=== PATIENT | female | born 1980 | race Caucasian/White ===

== ENCOUNTER → 2019-12-26 14:33 | Outpatient (BNVA) | payer MEDICAID, SELFPAY | PROVIDERS: PCP Nurse Practitioner Family; Referring Provider Nurse Practitioner Family; Visit Provider Otolaryngology | DX: H91.93 Unspecified hearing loss, bilateral (principal); J34.2 Deviated nasal septum; F17.210 Nicotine dependence, cigarettes, uncomplicated | CPT/HCPCS: 99203; 99214 ==

== ENCOUNTER → 2020-01-30 10:50 | Outpatient (BNVA) | payer MEDICAID, SELFPAY | PROVIDERS: PCP Nurse Practitioner Family; Visit Provider Family Medicine | DX: Z00.00 Encounter for general adult medical examination without abnormal findings (principal); F31.81 Bipolar II disorder | CPT/HCPCS: 80053; 80061; 84443; 85025 ==

== ENCOUNTER → 2020-02-06 11:12 | Outpatient (BNVA) | payer MEDICAID, SELFPAY | PROVIDERS: PCP Nurse Practitioner Family; Visit Provider Counselor Professional | DX: F41.9 Anxiety disorder, unspecified (principal); F31.9 Bipolar disorder, unspecified | CPT/HCPCS: 90834 ==

== ENCOUNTER → 2020-02-20 11:09 | Outpatient (BNVA) | payer MEDICAID, SELFPAY | PROVIDERS: PCP Nurse Practitioner Family; Visit Provider Counselor Professional | DX: F31.9 Bipolar disorder, unspecified (principal); F41.9 Anxiety disorder, unspecified | CPT/HCPCS: 90832 ==

== ENCOUNTER → 2020-02-28 07:52 | Outpatient (BNVA) | payer MEDICAID, SELFPAY | PROVIDERS: PCP Nurse Practitioner Family; Visit Provider Psychiatry & Neurology Psychiatry | DX: F31.81 Bipolar II disorder (principal); F41.9 Anxiety disorder, unspecified; F43.12 Post-traumatic stress disorder, chronic | CPT/HCPCS: 99205 ==

== ENCOUNTER → 2020-04-15 07:55 | Outpatient (BNVA) | payer MEDICAID, SELFPAY | PROVIDERS: PCP Nurse Practitioner Family; Visit Provider Psychiatry & Neurology Psychiatry | DX: G47.00 Insomnia, unspecified (principal); F41.1 Generalized anxiety disorder; F40.01 Agoraphobia with panic disorder; F31.81 Bipolar II disorder; F31.9 Bipolar disorder, unspecified; J34.2 Deviated nasal septum; H91.93 Unspecified hearing loss, bilateral | CPT/HCPCS: 99215 ==

== ENCOUNTER → 2020-04-16 09:28 | Outpatient (BNVA) | payer MEDICAID, SELFPAY | PROVIDERS: PCP Nurse Practitioner Family; Visit Provider Psychiatry & Neurology Psychiatry | DX: F51.01 Primary insomnia (principal); F40.01 Agoraphobia with panic disorder; F41.1 Generalized anxiety disorder; F31.81 Bipolar II disorder; J34.2 Deviated nasal septum; F31.9 Bipolar disorder, unspecified; F41.9 Anxiety disorder, unspecified; G47.00 Insomnia, unspecified; H91.93 Unspecified hearing loss, bilateral | CPT/HCPCS: 81025; 82607; 82652; 82746; 84630 ==

== ENCOUNTER → 2020-05-08 16:00 | Outpatient (BNVA) | payer MEDICAID, SELFPAY | PROVIDERS: PCP Nurse Practitioner Family; Visit Provider Family Medicine | DX: E78.5 Hyperlipidemia, unspecified (principal) | CPT/HCPCS: 80053; 80061; 85025 ==

== ENCOUNTER → 2020-05-27 07:45 | Outpatient (BNVA) | payer MEDICAID, SELFPAY | PROVIDERS: PCP Nurse Practitioner Family; Visit Provider Nurse Practitioner Psychiatric/Mental Health | DX: F40.01 Agoraphobia with panic disorder (principal); F31.81 Bipolar II disorder; F43.10 Post-traumatic stress disorder, unspecified | CPT/HCPCS: 99213 ==

== ENCOUNTER → 2020-05-28 08:40 | Outpatient (BNVA) | payer MEDICAID, SELFPAY | PROVIDERS: PCP Nurse Practitioner Family; Visit Provider Counselor Professional | DX: F40.01 Agoraphobia with panic disorder (principal); F31.89 Other bipolar disorder; F43.12 Post-traumatic stress disorder, chronic | CPT/HCPCS: 90832 ==

== ENCOUNTER → 2020-07-02 09:39 | Outpatient (BNVA) | payer MEDICAID, SELFPAY | PROVIDERS: PCP Nurse Practitioner Family; Visit Provider Nurse Practitioner Psychiatric/Mental Health | DX: F40.01 Agoraphobia with panic disorder (principal); F43.10 Post-traumatic stress disorder, unspecified | CPT/HCPCS: 99212 ==

== ENCOUNTER → 2020-08-28 16:10 | Outpatient (BNVA) | payer MEDICAID, SELFPAY | PROVIDERS: PCP Nurse Practitioner Family; Visit Provider Family Medicine | DX: E78.5 Hyperlipidemia, unspecified (principal); F51.01 Primary insomnia; G43.829 Menstrual migraine, not intractable, without status migrainosus; Z23 Encounter for immunization | CPT/HCPCS: 80053; 80061; 85025 ==

== ENCOUNTER → 2020-09-24 08:21 | Outpatient (BNVA) | payer MEDICAID, SELFPAY | PROVIDERS: PCP Nurse Practitioner Family; Visit Provider Nurse Practitioner Psychiatric/Mental Health | DX: F31.81 Bipolar II disorder (principal); F40.01 Agoraphobia with panic disorder; F43.10 Post-traumatic stress disorder, unspecified | CPT/HCPCS: 99212 ==

== ENCOUNTER → 2020-10-21 11:46 | Outpatient (BNVA) | payer MEDICAID, SELFPAY | PROVIDERS: PCP Nurse Practitioner Family; Visit Provider Family Medicine | DX: R53.82 Chronic fatigue, unspecified (principal); M25.541 Pain in joints of right hand; M25.542 Pain in joints of left hand | CPT/HCPCS: 80053; 82306; 82607; 83540; 84443; 84550; 85025; 85651; 86431 ==

== ENCOUNTER → 2020-11-12 08:19 | Outpatient (BNVA) | payer MEDICAID, SELFPAY | PROVIDERS: PCP Nurse Practitioner Family; Visit Provider Nurse Practitioner Psychiatric/Mental Health | DX: Z51.81 Encounter for therapeutic drug level monitoring (principal); F40.01 Agoraphobia with panic disorder; F43.10 Post-traumatic stress disorder, unspecified | CPT/HCPCS: 99212 ==

== ENCOUNTER → 2020-11-13 15:49 | Outpatient (BNVA) | payer MEDICAID, SELFPAY | PROVIDERS: PCP Nurse Practitioner Family; Visit Provider Nurse Practitioner Psychiatric/Mental Health | DX: Z51.81 Encounter for therapeutic drug level monitoring (principal) | CPT/HCPCS: 80307 ==

== ENCOUNTER → 2020-12-12 07:51 | Outpatient (BNVA) | payer MEDICAID, SELFPAY | PROVIDERS: PCP Nurse Practitioner Family; Visit Provider Nurse Practitioner Psychiatric/Mental Health | DX: F40.01 Agoraphobia with panic disorder (principal); F43.10 Post-traumatic stress disorder, unspecified | CPT/HCPCS: 99213 ==

== ENCOUNTER → 2021-02-06 08:39 | Outpatient (BNVA) | payer MEDICAID, SELFPAY | PROVIDERS: PCP Nurse Practitioner Family; Visit Provider Nurse Practitioner Psychiatric/Mental Health | DX: F40.01 Agoraphobia with panic disorder (principal); F43.10 Post-traumatic stress disorder, unspecified | CPT/HCPCS: 99214 ==

== ENCOUNTER → 2021-02-25 12:40 | Outpatient (BNVA) | payer MEDICAID, SELFPAY | PROVIDERS: PCP Nurse Practitioner Family; Visit Provider Social Worker Clinical | DX: F41.1 Generalized anxiety disorder (principal); F41.0 Panic disorder [episodic paroxysmal anxiety]; F43.10 Post-traumatic stress disorder, unspecified | CPT/HCPCS: 90834 ==

== ENCOUNTER → 2021-03-11 16:11 | Outpatient (BNVA) | payer MEDICAID, SELFPAY | PROVIDERS: PCP Nurse Practitioner Family; Visit Provider Family Medicine | DX: N92.0 Excessive and frequent menstruation with regular cycle (principal); E78.2 Mixed hyperlipidemia; F51.01 Primary insomnia; M25.541 Pain in joints of right hand; M25.542 Pain in joints of left hand | CPT/HCPCS: 80053; 80061; 84443; 85025 ==

== ENCOUNTER → 2021-03-14 11:39 | Outpatient (BNVA) | payer MEDICAID, SELFPAY | PROVIDERS: PCP Nurse Practitioner Family; Visit Provider Nurse Practitioner Women's Health | DX: N93.9 Abnormal uterine and vaginal bleeding, unspecified (principal); Z12.4 Encounter for screening for malignant neoplasm of cervix; N89.8 Other specified noninflammatory disorders of vagina; B37.9 Candidiasis, unspecified; N94.5 Secondary dysmenorrhea; G43.829 Menstrual migraine, not intractable, without status migrainosus | CPT/HCPCS: 84702; 88175 ==

== ENCOUNTER → 2021-03-17 08:23 | Outpatient (BNVA) | payer MEDICAID, SELFPAY | PROVIDERS: PCP Nurse Practitioner Family; Visit Provider Nurse Practitioner Psychiatric/Mental Health | DX: F41.1 Generalized anxiety disorder (principal); F51.01 Primary insomnia; F41.0 Panic disorder [episodic paroxysmal anxiety]; F43.10 Post-traumatic stress disorder, unspecified | CPT/HCPCS: 99214 ==

== ENCOUNTER → 2021-03-18 12:52 | Outpatient (BNVA) | payer MEDICAID, SELFPAY | PROVIDERS: PCP Nurse Practitioner Family; Visit Provider Social Worker Clinical | DX: F41.1 Generalized anxiety disorder (principal); F41.0 Panic disorder [episodic paroxysmal anxiety]; F43.10 Post-traumatic stress disorder, unspecified | CPT/HCPCS: 90834 ==

== ENCOUNTER → 2021-03-21 09:28 | Outpatient (BNVA) | payer MEDICAID, SELFPAY | PROVIDERS: PCP Nurse Practitioner Family; Visit Provider Nurse Practitioner Women's Health | DX: N93.9 Abnormal uterine and vaginal bleeding, unspecified (principal); N83.292 Other ovarian cyst, left side; N89.8 Other specified noninflammatory disorders of vagina | CPT/HCPCS: 76830 ==

== ENCOUNTER → 2021-04-03 10:30 | Outpatient (BNVA) | payer MEDICAID, SELFPAY | PROVIDERS: PCP Nurse Practitioner Family; Visit Provider Nurse Practitioner Women's Health | DX: N93.9 Abnormal uterine and vaginal bleeding, unspecified (principal) | CPT/HCPCS: 84702 ==

== ENCOUNTER → 2021-04-08 10:18 | Outpatient (BNVA) | payer MEDICAID, SELFPAY | PROVIDERS: PCP Nurse Practitioner Family; Visit Provider Nurse Practitioner Women's Health | DX: N93.9 Abnormal uterine and vaginal bleeding, unspecified (principal); N94.5 Secondary dysmenorrhea; G43.829 Menstrual migraine, not intractable, without status migrainosus | CPT/HCPCS: 81025; 88305 ==

== ENCOUNTER → 2021-04-09 12:58 | Outpatient (BNVA) | payer MEDICAID, SELFPAY | PROVIDERS: PCP Nurse Practitioner Family; Visit Provider Social Worker Clinical | DX: F43.12 Post-traumatic stress disorder, chronic (principal); F41.1 Generalized anxiety disorder; F41.0 Panic disorder [episodic paroxysmal anxiety] | CPT/HCPCS: 90834 ==

== ENCOUNTER 2021-04-29 08:12 | Outpatient (CLI) | payer MEDICAID, SELFPAY ==
--- NOTE | 2021-04-29 08:30 | MM_ITS ---
WS: [id number] BILATERAL DIGITAL SCREENING MAMMOGRAM WITH CAD CLINICAL INFORMATION: Z12.39 - Encounter for other screening for malignant neop... HISTORY: Screening mammogram. No current complaints. COMPARISON: None. TECHNIQUE: Bilateral CC and MLO. FINDINGS: The breast are composed of extremely dense tissue, which can limit the detection of small underlying mass lesions. Clustered regional calcifications in the upper outer left breast. Recommend spot magnif ication views for further evaluation. Right breast is unremarkable. IMPRESSION: MM/[place] [id number] BI-RADS: 0-Incomplete: Need additional imaging evaluation FOLLOW UP: Need Additional Imaging RECOMMEND DIAGNOSTIC MAMMOGRAPHY SPOT MAGNIFICATION VIEWS LEFT BREAST WITH ATTE NTION TO THE REGION OF CALCIFICATIONS.
== END 2021-04-29 08:13 | disposition home or self-care (01) ==
LOC: RADSHAW 08:13
PROVIDERS: PCP Family Medicine; Visit Provider Nurse Practitioner Women's Health
DX: Z12.31 Encounter for screening mammogram for malignant neoplasm of breast (principal)
CPT/HCPCS: 77067

== ENCOUNTER → 2021-04-30 12:59 | Outpatient (BNVA) | payer MEDICAID, SELFPAY | PROVIDERS: PCP Family Medicine; Visit Provider Social Worker Clinical | DX: F41.1 Generalized anxiety disorder (principal); F41.0 Panic disorder [episodic paroxysmal anxiety] | CPT/HCPCS: 90834 ==

== ENCOUNTER 2021-05-02 13:17 | Outpatient (CLI) | payer MEDICAID, SELFPAY ==
--- NOTE | 2021-05-02 13:30 | MM_ITS ---
WS: [id number] LEFT DIGITAL MAMMOGRAPHY WITH CAD CLINICAL INFORMATION: R92.1 - Mammographic calcification found on diagnostic im.. COMPARISON: April 29, 2021 TECHNIQUE: 3 views of the left breast were obtained. FINDINGS: The left breast is composed of heterogeneous fibroglandular density tissue, which can limit the detec tion of small underlying mass lesions. Stable clustered regional calcifications in the upper outer le ft breast. Amorphus clustered and punctate calcifications upper outer left breast. Essentially all of the calcifications demonstrate layering on the MLO view consistent with milk of calcium. Additional benign-appearing lucent centered calcifications. These are probably benign and recommend 6 month foll ow-up diagnostic mammography left breast with spot magnification views. ULTRASOUND BREAST LEFT TECHNIQUE: Ultrasound left breast focused area of concern. CLINICAL INFORMATION: R92.1 - Mammographic calcification found on diagnostic im... FINDINGS: Ultrasound left breast upper-outer quadrant. Dense parenchymal tissue. Two discrete hypoechoic lesion s with internal echogenicity may present complex cysts but are indeterminate. Recommend ultrasound-gu ided biopsy for further evaluation. First lesion measures 6.7 x 8.0 x 3.9 mm at the 1:00 position 2 to 3 cm from the nipple. Second lesio n at the 1:00 position 5 cm from the nipple measuring 7.4 x 3.7 x 7.5 mm. MM/[place] [id number] IMPRESSION: BI-RADS: 4-Suspicious Finding-Biopsy Should Be Considered FOLLOW UP: See Report RECOMMEND ULTRASOUND-GUIDED BIOPSY OF THE LEFT BREAST LESIONS. IN ADDITION, RECOMMEND 6 MONTH FOLLOW-UP DIAGNOSTIC MAMMOGRAPHY WITH SPOT MAGNI FICATION VIEWS OF THE CALCIFICATIONS UPPER OUTER LEFT BREAST
--- NOTE | 2021-05-02 14:05 | US_ITS ---
WS: [id number] LEFT DIGITAL MAMMOGRAPHY WITH CAD CLINICAL INFORMATION: R92.1 - Mammographic calcification found on diagnostic im.. COMPARISON: April 29, 2021 TECHNIQUE: 3 views of the left breast were obtained. FINDINGS: The left breast is composed of heterogeneous fibroglandular density tissue, which can limit the detec tion of small underlying mass lesions. Stable clustered regional calcifications in the upper outer le ft breast. Amorphus clustered and punctate calcifications upper outer left breast. Essentially all of the calcifications demonstrate layering on the MLO view consistent with milk of calcium. Additional benign-appearing lucent centered calcifications. These are probably benign and recommend 6 month foll ow-up diagnostic mammography left breast with spot magnification views. ULTRASOUND BREAST LEFT TECHNIQUE: Ultrasound left breast focused area of concern. CLINICAL INFORMATION: R92.1 - Mammographic calcification found on diagnostic im... FINDINGS: Ultrasound left breast upper-outer quadrant. Dense parenchymal tissue. Two discrete hypoechoic lesion s with internal echogenicity may present complex cysts but are indeterminate. Recommend ultrasound-gu ided biopsy for further evaluation. First lesion measures 6.7 x 8.0 x 3.9 mm at the 1:00 position 2 to 3 cm from the nipple. Second lesio n at the 1:00 position 5 cm from the nipple measuring 7.4 x 3.7 x 7.5 mm. US/US breast LT limited* [id number] IMPRESSION: BI-RADS: 4-Suspicious Finding-Biopsy Should Be Considered FOLLOW UP: See Report RECOMMEND ULTRASOUND-GUIDED BIOPSY OF THE LEFT BREAST LESIONS. IN ADDITION, RECOMMEND 6 MONTH FOLLOW-UP DIAGNOSTIC MAMMOGRAPHY WITH SPOT MAGNI FICATION VIEWS OF THE CALCIFICATIONS UPPER OUTER LEFT BREAST
== END 2021-05-02 13:18 | disposition home or self-care (01) ==
LOC: RADSHAW 13:19
PROVIDERS: PCP Family Medicine; Visit Provider Nurse Practitioner Women's Health
DX: R92.1 Mammographic calcification found on diagnostic imaging of breast (principal); N64.89 Other specified disorders of breast
CPT/HCPCS: 76642; 77065

== ENCOUNTER → 2021-05-09 13:31 | Outpatient (BNVA) | payer MEDICAID, SELFPAY | PROVIDERS: PCP Family Medicine; Visit Provider Obstetrics & Gynecology | DX: N88.0 Leukoplakia of cervix uteri (principal) | CPT/HCPCS: 81025; 88305 ==

== ENCOUNTER 2021-05-15 07:07 | Outpatient (CLI) | payer MEDICAID, SELFPAY ==
--- NOTE | 2021-05-15 07:10 | US_ITS ---
WS: [id number] ULTRASOUND LEFT BREAST HISTORY: R92.8 - Other abnormal and inconclusive findings on diagnostic mammo. COMPARISON: 05/02/2021 and 04/29/2021 TECHNIQUE: 2-D and Doppler. Patient presents for possible biopsy of the LEFT breast mass in the LEFT upper outer quadrant. On tod ay's examination there are normal fibroglandular structures. Ducts are dilated. All of these cystic a reas elongated and there are no luminal filling defect or increased vascularity. No mass is identifie d. US/US breast LT limited* [id number] IMPRESSION: BI-RADS: 3-Probably Benign FOLLOW-UP: 6 Month Follow-up There is no mass identified today for biopsy. This was explained to the patient . No biopsy will be performed. 6 month follow-up will be performed. This can be performed at the time of the additional magnification views of the LEFT breast which were also recommended.
== END 2021-05-15 07:08 | disposition home or self-care (01) ==
LOC: RAD 07:09
PROVIDERS: PCP Family Medicine; Visit Provider Nurse Practitioner Women's Health
DX: R92.8 Other abnormal and inconclusive findings on diagnostic imaging of breast (principal)
CPT/HCPCS: 76642

== ENCOUNTER → 2021-05-21 12:46 | Outpatient (BNVA) | payer MEDICAID, SELFPAY | PROVIDERS: PCP Family Medicine; Visit Provider Social Worker Clinical | DX: F41.1 Generalized anxiety disorder (principal); F43.12 Post-traumatic stress disorder, chronic; F41.0 Panic disorder [episodic paroxysmal anxiety] | CPT/HCPCS: 90834 ==

== ENCOUNTER → 2021-05-29 11:24 | Outpatient (BNVA) | payer MEDICAID, SELFPAY | PROVIDERS: PCP Family Medicine; Visit Provider Nurse Practitioner Women's Health | DX: Z30.9 Encounter for contraceptive management, unspecified (principal); N93.9 Abnormal uterine and vaginal bleeding, unspecified | CPT/HCPCS: 81025 ==

== ENCOUNTER → 2021-06-11 12:49 | Outpatient (BNVA) | payer MEDICAID, SELFPAY | PROVIDERS: PCP Family Medicine; Visit Provider Social Worker Clinical | DX: F43.12 Post-traumatic stress disorder, chronic (principal); F41.1 Generalized anxiety disorder; F41.0 Panic disorder [episodic paroxysmal anxiety] | CPT/HCPCS: 90834 ==

== ENCOUNTER → 2021-06-19 07:58 | Outpatient (BNVA) | payer MEDICAID, SELFPAY | PROVIDERS: PCP Family Medicine; Visit Provider Nurse Practitioner Psychiatric/Mental Health | DX: F41.1 Generalized anxiety disorder (principal); F41.0 Panic disorder [episodic paroxysmal anxiety]; F43.10 Post-traumatic stress disorder, unspecified; F51.01 Primary insomnia | CPT/HCPCS: 99214 ==

== ENCOUNTER → 2021-06-23 17:14 | Outpatient (BNVA) | payer MEDICAID, SELFPAY | PROVIDERS: PCP Family Medicine; Visit Provider Family Medicine | DX: E78.2 Mixed hyperlipidemia (principal); G43.829 Menstrual migraine, not intractable, without status migrainosus; F51.01 Primary insomnia; F17.211 Nicotine dependence, cigarettes, in remission; Z71.89 Other specified counseling | CPT/HCPCS: 80053; 80061; 84443; 85025 ==

== ENCOUNTER → 2021-07-22 07:49 | Outpatient (BNVA) | payer MEDICAID, SELFPAY | PROVIDERS: PCP Family Medicine; Visit Provider Nurse Practitioner Psychiatric/Mental Health | DX: F41.1 Generalized anxiety disorder (principal); F41.0 Panic disorder [episodic paroxysmal anxiety]; F43.10 Post-traumatic stress disorder, unspecified; F51.01 Primary insomnia | CPT/HCPCS: 99214 ==

== ENCOUNTER 2021-07-24 09:38 | Emergency (ER) | payer MEDICAID, SELFPAY ==
[2021-07-24 09:47] VITALS: BP 130/89; PULSE 84; RESP 18; TEMP 36.7; O2SAT 99; BMI 21.7
--- NOTE | 2021-07-24 09:57 | W.ED.ABDPA2 ---
HPI - Abdominal Pain General: Chief Complaint: Abdominal Pain Stated Complaint: stabbing pains to upper abd,sore to touch Time Seen by Provider: 07/24/21 09:43 Source: patient Mode of arrival: ambulatory Limitations: no limitations History of Present Illness: HPI narrative: Patient is a 40-year-old female who presents to ED today with a complaint of intermittent pain to her epigastric region over the past week. Patient tells me pain is always minimally present but will have brief exacerbations of severe discomfort. She has had some nausea without episodes of emesis. She had a little bit of diarrhea earlier in the week but states she had a normal bowel movement yesterday. Eating does not seem to affect her discomfort. No heavy alcohol use or anti-inflammatory use. No previous history of pancreatitis. No known history of gastric or duodenal ulcers or GI bleeds. No radiation of pain into her chest. MD elicited complaint: abdominal pain Onset (ago): day(s) Pain Consistency: intermittent Location: Epigastric Severity: moderate Pain scale (0-10): 5 Quality: sharp Radiation: none Migration to: no migration Exacerbating factors: nothing Relieving factors: nothing Associated Symptoms: Reports nausea; Denies chills, dysuria, fever(s), heartburn, hematochezia, hematemesis, melena, syncope and vomiting Review of Systems Const: Denies: fever(s), chills, body aches, fatigue or malaise ENMT: Denies: throat pain or odynophagia Card: Denies: chest pain, palpitations, edema, syncope or pre-syncope Resp: Denies: dyspnea, productive cough, non-productive cough or chest congestion GI: Reports: abdominal pain and nausea; Denies: vomiting, hematemesis, heartburn, pain on defecation, hematochezia or melena : Denies: flank pain, difficulty voiding, dysuria, urinary frequency or urinary urgency Musc: Denies: neck pain, back pain, extremity pain or joint pain Skin/Breast: Denies: rash Neuro: Denies: headache(s), numbness in extremities, weakness in extremities or sensory changes [facility] PFSH: Medical History Bipolar 1 disorder Deviated septum Generalized anxiety disorder with panic attacks Hx of supraventricular tachycardia Insomnia Menstrual migraine No pertinent past medical history neghx: htn,dm,thyroid,dvt/pe PCP: Dr. Marin Panic disorder with agoraphobia Surgical History No pertinent past surgical history Family History Family/Other Cancer MGM-- mets all over but uncertain etiology Bipolar 1 disorder Psychiatric illness Mother Heart disease Hypercholesteremia Stroke Other Hyperlipidemia Denies family history of Colon cancer Ovarian cancer Diabetes Breast cancer Hypertension Uterine cancer Thyroid disease Social History Smoking and tobacco status: former smoker Other details last substance use: 2 years ago Alcohol Methamphetamines. No cravings. Physical Exam Const: COMMON NORMALS: no acute distress, average body habitus, patient oriented x3, no limitations, healthy appearing, alert and well nourished GENERAL APPEARANCE: cooperative ORIENTATION/CONSCIOUSNESS: Yes awake, Yes oriented to person, Yes oriented to place and Yes oriented to time HENMT: COMMON NORMALS: normocephalic and atraumatic HEAD & SCALP: normocephalic and atraumatic Resp: COMMON NORMALS: normal respiratory effort and clear to auscultation bilaterally AUSCULTATION: clear to auscultation bilaterally Cardio: COMMON NORMALS: regular rate and regular rhythm RATE: regular rate RHYTHM: regular rhythm GI: COMMON NORMALS: Normal to inspection, nondistended, normoactive bowel sounds present, Soft to palpation, No hepatosplenomegaly present and no masses PALPATION: Yes Soft to palpation, Yes Tenderness to palpation present (GI) (epigastric) Details: LUQ and Yes No hepatosplenomegaly present : COMMON NORMALS: Yes no CVA tenderness BLADDER/KIDNEY EXAM: Yes no CVA tenderness Back/Pelvis: COMMON NORMALS: no CVA tenderness, thoracic and lumbar spine normal to inspection, no thoracic nor lumbar tenderness and thoraco-lumbar ROM normal Extremity: COMMON NORMALS: normal to inspection Neuro: COMMON NORMALS: patient oriented x3 SENSORIUM/ORIENTATION: Yes alert, Yes oriented to person, Yes oriented to place and Yes oriented to time Skin: COMMON NORMALS: no rashes or lesions noted GENERAL SKIN EXAM: no rashes or lesions noted TRAUMA: no lacerations or abrasions Course Vital Signs: Vital signs: Vital Signs Temperature 98.0 F 07/24/21 09:47 Pulse Rate 83 07/24/21 10:43 Respiratory Rate 18 07/24/21 10:43 Blood Pressure 108/73 07/24/21 10:43 Pulse Oximetry 95 07/24/21 10:43 MDM - Abdominal Pain MDM Narrative: Medical decision making narrative: Patient here with mainly epigastric and some slight left upper quadrant abdominal pain of unknown origin. Vital signs are perfect. Labs are unremarkable. She has a normal lipase. She did not gain much relief from a GI cocktail thus CT imaging obtained to rule out emergent pathology. Her CT scan is essentially normal. Will place on trial of famotidine/prilosec and recommend follow-up with primary care early next week for further evaluation. Strict return to ED precautions given. Lab Data: Attestation: I reviewed the patient's lab results. Labs: Lab Results 07/24/21 07/24/21 07/24/21 Range/Units 10:20 10:20 10:20 WBC 12.7 H (4.0-10.0) 10^3/ uL RBC 4.20 (4.1-5.3) 10^6/u L Hgb 13.6 (11.5-15.3) g/dL Hct 40.5 (37.0-47.0) % MCV 96.4 (81-99) fl MCH 32.4 (28.0-34.0) pg MCHC 33.6 (30.0-36.0) g/dL RDW 12.0 L (12.1-15.1) % Plt Count 196 (130-400) 10^3/c mm MPV 12.1 H (7.4-10.4) fL Neut % (Auto) 72.5 % Lymph % (Auto) 17.3 % [place] % (Auto) 8.7 % Eos % (Auto) 0.8 % Baso % (Auto) 0.5 % Neut # (Auto) 9.23 H (1.8-7.7) 10^3/u L Lymph # (Auto) 2.2 (0.8-4.8) 10^3/u L [place] # (Auto) 1.1 H (0.2-0.9) 10^3/u L Eos # (Auto) 0.1 (0.0-0.8) 10^3/u L Baso # (Auto) 0.1 (0.0-0.1) 10^3/u L Nucleated RBC % (a uto) 0 % Nucleated RBCs # 0.0 /100WBC Sodium 140 (136-145) mmol/L Potassium 4.0 (3.5-5.1) mmol/L Chloride 106 (98-107) mmol/L Carbon Dioxide 26 (22-29) mmol/L Anion Gap 12.0 (5-19) BUN 10 (6-20) mg/dL Creatinine 0.8 (0.5-0.9) mg/dL GFR Calculation 79.4 L (90-130) mL/min Glucose 80 (65-115) mg/dL Calculated Osmolal ity 288 (285-295) mOsm/k g Calcium 8.6 (8.5-10.5) mg/dL Total Bilirubin 0.3 (0.15-1.2) mg/dL AST 18 (0-32) U/L ALT 19 (0-33) U/L Alkaline Phosphata se 72 (35-105) IU/L Total Protein 6.4 L (6.6-8.7) g/dL Albumin 4.3 (3.5-5.2) g/dL Globulin 2.1 (1.3-4.6) g/dL Lipase 42 (13-60) U/L HCG, Qual Negative (Negative) Urine Color (Yellow) Urine Appearance (CLEAR) Urine pH (5-7) Ur Specific Gravit y (1.005-1.030) Urine Protein (Negative) Urine Glucose (UA) (Normal) Urine Ketones (Negative) Urine Blood (Negative) Urine Nitrate (Negative) Urine Bilirubin (Negative) Urine Urobilinogen (Negative) mg/dL Ur Leukocyte Marielle ase (Negative) 07/24/21 Range/Units 11:45 WBC (4.0-10.0) 10^3/ uL RBC (4.1-5.3) 10^6/u L Hgb (11.5-15.3) g/dL Hct (37.0-47.0) % MCV (81-99) fl MCH (28.0-34.0) pg MCHC (30.0-36.0) g/dL RDW (12.1-15.1) % Plt Count (130-400) 10^3/c mm MPV (7.4-10.4) fL Neut % (Auto) % Lymph % (Auto) % [place] % (Auto) % Eos % (Auto) % Baso % (Auto) % Neut # (Auto) (1.8-7.7) 10^3/u L Lymph # (Auto) (0.8-4.8) 10^3/u L [place] # (Auto) (0.2-0.9) 10^3/u L Eos # (Auto) (0.0-0.8) 10^3/u L Baso # (Auto) (0.0-0.1) 10^3/u L Nucleated RBC % (a uto) % Nucleated RBCs # /100WBC Sodium (136-145) mmol/L Potassium (3.5-5.1) mmol/L Chloride (98-107) mmol/L Carbon Dioxide (22-29) mmol/L Anion Gap (5-19) BUN (6-20) mg/dL Creatinine (0.5-0.9) mg/dL GFR Calculation (90-130) mL/min Glucose (65-115) mg/dL Calculated Osmolal ity (285-295) mOsm/k g Calcium (8.5-10.5) mg/dL Total Bilirubin (0.15-1.2) mg/dL AST (0-32) U/L ALT (0-33) U/L Alkaline Phosphata se (35-105) IU/L Total Protein (6.6-8.7) g/dL Albumin (3.5-5.2) g/dL Globulin (1.3-4.6) g/dL Lipase (13-60) U/L HCG, Qual (Negative) Urine Color Straw (Yellow) Urine Appearance Clear (CLEAR) Urine pH 6.5 (5-7) Ur Specific Gravit y 1.010 (1.005-1.030) Urine Protein Neg (Negative) Urine Glucose (UA) Norm (Normal) Urine Ketones Negative (Negative) Urine Blood Neg (Negative) Urine Nitrate Negative (Negative) Urine Bilirubin Neg (Negative) Urine Urobilinogen Norm (Negative) mg/dL Ur Leukocyte Marielle ase Negative (Negative) Imaging Data ^: CT Abd/Pel: Radiologist's impression: [facility] [address] [place] [address] CT Scan Report Signed Patient: Dayna Andrews Unit #: [id number] : 1980 Age/Sex: 40 / F ADM Date: 07/24/21 Loc: ER Room/Bed: Attending Dr: Ordering Provider/Ordering MD: Thelma Leos Date of Service: 07/24/21 Procedure(s): CT abdomen pelvis w con* [id number] Accession Number(s): [id number] Report Number: [id number] WS: [id number] CT ABDOMEN AND PELVIS WITH CONTRAST HISTORY: upper abdominal pain, epigastric pain for one week. TECHNIQUE: Imaging performed of the abdomen and pelvis with IV contrast. Single phase imaging of the abdomen. Coronal and sagittal reformats are submitted. All CT scans at [facility] use at least one of these dose optimization techniques: automated exposure control; mA and/or kV adjustment per patient size (includes targeted exams where dose is matched to clinical indication); or iterative reconstruction. IV CONTRAST: Omnipaque 300; 95 mL IV. Oral contrast: No DLP: 906.81 mGy.cm COMPARISON: None available. Lower thorax: Lung bases are clear. Heart is normal size. Small hiatal hernia. Liver/biliary system: Normal size with no intrahepatic dilatation. Gallbladder: Normal. No gallstones or wall thickening. No pericholecystic fluid. Pancreas: Normal size pancreas and pancreatic duct. No adjacent inflammation. Spleen: Normal size spleen. No mass or infarct. Adrenal glands: Normal. Right kidney: Normal size with no obstruction. There is a too small to characterize 4 mm hypodensity in the mid kidney. Left kidney: Normal size with no obstruction. 7 mm cyst in the lower pole. Aorta: Normal. Lymphadenopathy: None. Free fluid: There is a small amount of free fluid in the cul-de-sac which appears slightly greater than physiologic. GI tract: Normal appendix. No GI tract obstruction. Abdominal wall: Fat containing umbilical hernia. Pelvis: Uterus is anteverted and contains an IUD. There is a small amount of free fluid which is slightly greater than physiologic. Crenulated peripherally enhancing cyst in the LEFT adnexa measures 2.3 cm at its maximum. This is probably a collapsing corpus luteum. There are small follicles in the RIGHT ovary. Bones: Unremarkable. CT/CT abdomen pelvis w con* [id number] IMPRESSION: 1. Normal gallbladder by CT. 2. Slightly more than physiologic free fluid in the pelvis is probably due to a collapsing LEFT corpus luteal cyst. 3. IUD in good position. 4. Normal appendix. Dictated By: Carolynn Moeller DO Signed By: Carolynn Moeller DO Signed Date/Time: 07/24/21 1139 DD/ 1131 Discharge Plan Discharge Patient Disposition: Home Clinical Impression: Epigastric abdominal pain of unknown etiology Condition: Stable Prescriptions: New famotidine 20 mg tablet 20 mg PO BID 14 Days Qty: 28 RF: 0 Prilosec OTC 20 mg tablet,delayed release (DR/EC) 20 mg PO BID 10 Days Qty: 20 RF: 0 No Action buspirone 10 mg tablet 20 mg PO TID 30 Days Qty: 180 RF: 0 bupropion HCl 75 mg tablet 75 mg PO BID Qty: 60 RF: 1 clonazepam 0.5 mg tablet 0.25 mg PO BID PRN (Reason: anxiety/panic) Qty: 30 RF: 1 Mirena 20 mcg/24 hours (6 yrs) 52 mg intrauterine device 20 mcg intrauterine DAILY RF: 0 rizatriptan [Maxalt-SLIDE FASTENER REPAIRER] 10 mg tablet,disintegrating See Rx Instructions PO .COMPLEX Qty: 14 RF: 4 atorvastatin [Lipitor] 10 mg tablet 10 mg PO DAILY Qty: 90 RF: 0 Ambien 5 mg tablet 10 mg PO BEDTIME PRN (Reason: insomnia) RF: 0 Discharge Orders: Discharge ED (Routine); Ordered 07/24/21 Ordered By: Thelma Leos Referrals: Elma Marin MD [Primary Care Provider] - Patient Instructions: Abdominal Pain (ED) Activity Restrictions/Additional Instructions: As we discussed your labs and CT imaging were normal today. We will place you on to trial medications to see if this helps or reduces your discomfort. As we spoke please follow-up with primary care as soon as possible for reevaluation. You need to return to the emergency department for severe or uncontrollable abdominal pain, repetitive episodes of vomiting, blood in your vomit, fevers, severe chest pain, or any other concerns you may have. Coding Level of Care Code ED [employer] Machine Helper for Chg Fwd Exam Comprehensive
[2021-07-24] MEDS: lidocaine 2% viscous 15 ML, aluminum-mag hydrox-simethicon 30 ML, sucralfate oral liq 1 GM PO (10:12)
[2021-07-24 10:14] VITALS: BP 108/73; PULSE 89; RESP 16; O2SAT 99
[2021-07-24 10:30] LABS: Basophils # 0.1 10^3/uL (0.0-0.1); Basophils % 0.5 %; Eosinophils # 0.1 10^3/uL (0.0-0.8); Eosinophils % 0.8 %; Hematocrit 40.5 % (37.0-47.0); Hemoglobin 13.6 g/dL (11.5-15.3); Lymphocytes # 2.2 10^3/uL (0.8-4.8); Lymphocytes % 17.3 %; Mean Corpuscular HGB Conc 33.6 g/dL (30.0-36.0); Mean Corpuscular Hemoglobin 32.4 pg (28.0-34.0); Mean Corpuscular Volume 96.4 fl (81-99); Mean Platelet Volume 12.1 fL (7.4-10.4); Monocytes # 1.1 10^3/uL (0.2-0.9); Monocytes % 8.7 %; Neutrophils # 9.23 10^3/uL (1.8-7.7); Neutrophils % 72.5 %; Nucleated Red Blood Cells % 0 %; Platelet Count 196 10^3/cmm (130-400); White Blood Count 12.7 10^3/uL (4.0-10.0)
[2021-07-24 10:42] LABS: HCG, Serum Qual Negative (Negative)
[2021-07-24 10:43] VITALS: BP 108/73; PULSE 83; RESP 18; O2SAT 95
[2021-07-24 10:51] LABS: Alanine Aminotransferase 19 U/L (0-33); Albumin Level 4.3 g/dL (3.5-5.2); Alkaline Phosphatase 72 IU/L (35-105); Aspartate Amino Transferase 18 U/L (0-32); Blood Urea Nitrogen 10 mg/dL (6-20); Calcium 8.6 mg/dL (8.5-10.5); Carbon Dioxide 26 mmol/L (22-29); Chloride 106 mmol/L (98-107); Creatinine Clr Calc Pharmacy 88.6509; Globulin 2.1 g/dL (1.3-4.6); Glomerular Filtration Rate 79.4 mL/min (90-130); Glucose 80 mg/dL (65-115); Lipase 42 U/L (13-60); Osmolality Calculated 288 mOsm/kg (285-295); Sodium 140 mmol/L (136-145); Total Bilirubin 0.3 mg/dL (0.15-1.2); Total Protein 6.4 g/dL (6.6-8.7)
--- NOTE | 2021-07-24 10:55 | CT_ITS ---
WS: [id number] CT ABDOMEN AND PELVIS WITH CONTRAST HISTORY: upper abdominal pain, epigastric pain for one week. TECHNIQUE: Imaging performed of the abdomen and pelvis with IV contrast. Single phase imaging of the abdomen. Coronal and sagittal reformats are submitted. All CT scans at [facility] use at [address] one of these dose optimization techniques: automated exposure control; mA and/or kV adjustment per patient size (includes targeted exams where dose is matched to clinical indication); or iterative re construction. IV CONTRAST: Omnipaque 300; 95 mL IV. Oral contrast: No DLP: 906.81 mGy.cm COMPARISON: None available. Lower thorax: Lung bases are clear. Heart is normal size. Small hiatal hernia. Liver/biliary system: Normal size with no intrahepatic dilatation. Gallbladder: Normal. No gallstones or wall thickening. No pericholecystic fluid. Pancreas: Normal size pancreas and pancreatic duct. No adjacent inflammation. Spleen: Normal size spleen. No mass or infarct. Adrenal glands: Normal. Right kidney: Normal size with no obstruction. There is a too small to characterize 4 mm hypodensity in the mid kidney. Left kidney: Normal size with no obstruction. 7 mm cyst in the lower pole. Aorta: Normal. Lymphadenopathy: None. Free fluid: There is a small amount of free fluid in the cul-de-sac which appears slightly greater th an physiologic. GI tract: Normal appendix. No GI tract obstruction. Abdominal wall: Fat containing umbilical hernia. Pelvis: Uterus is anteverted and contains an IUD. There is a small amount of free fluid which is slig htly greater than physiologic. Crenulated peripherally enhancing cyst in the LEFT adnexa measures 2.3 cm at its maximum. This is probably a collapsing corpus luteum. There are small follicles in the RIG HT ovary. Bones: Unremarkable. CT/CT abdomen pelvis w con* [id number] IMPRESSION: 1. Normal gallbladder by CT. 2. Slightly more than physiologic free fluid in the pelvis is probably due to a collapsing LEFT corpus luteal cyst. 3. IUD in good position. 4. Normal appendix.
[2021-07-24] MEDS: iohexol 300 mg/mL 100 mL Btl IV (11:22)
[2021-07-24 11:53] LABS: Add Urine Microscopic? NO; Charge for UA Resulting for Rev
[2021-07-24 12:02] LABS: Urine Color Straw (Yellow)
[2021-07-24 12:03] LABS: Bilirubin Urine Neg (Negative); Blood Urine Neg (Negative); Glucose Urine UA Norm (Normal); Ketones Urine Negative (Negative); Leukocyte Esterase Urine Negative (Negative); Nitrate Urine Negative (Negative); Protein Urine Neg (Negative); Urine Appearance Clear (CLEAR); Urobilinogen Urine Norm (Negative); pH Urine 6.5 (5-7)
[2021-07-24 12:18] VITALS: BP 103/73; PULSE 78; RESP 16; O2SAT 98
== END 2021-07-24 12:18 | disposition home or self-care (01) ==
PROVIDERS: Emergency Provider Physician Assistant; PCP Family Medicine
DX: R10.13 Epigastric pain (principal); Z87.891 Personal history of nicotine dependence
CPT/HCPCS: 74177; 80053; 81003; 83690; 84703; 85025; 99283; Q9967

== ENCOUNTER → 2021-08-15 09:26 | Outpatient (BNVA) | payer MEDICAID, SELFPAY | PROVIDERS: PCP Family Medicine; Visit Provider Obstetrics & Gynecology | DX: N89.8 Other specified noninflammatory disorders of vagina (principal); Z20.822 Contact with and (suspected) exposure to COVID-19 | CPT/HCPCS: 87635 ==

== ENCOUNTER → 2021-08-19 09:52 | Outpatient (BNVA) | payer MEDICAID, SELFPAY | PROVIDERS: PCP Family Medicine; Visit Provider Nurse Practitioner Psychiatric/Mental Health | DX: F41.1 Generalized anxiety disorder (principal); F41.0 Panic disorder [episodic paroxysmal anxiety]; F43.10 Post-traumatic stress disorder, unspecified; F51.01 Primary insomnia | CPT/HCPCS: 99213 ==

== ENCOUNTER 2021-08-20 11:04 | Day surgery (SDC) | payer MEDICAID, SELFPAY ==
[2021-08-18 11:52] VITALS: BMI 21.6
[2021-08-18 13:15] LABS: OR HCG Qualitative Urine Negative (Negative)
[2021-08-18 13:41] LABS: Basophils # 0.1 10^3/uL (0.0-0.1); Basophils % 0.6 %; Eosinophils # 0.1 10^3/uL (0.0-0.8); Eosinophils % 1.1 %; Hematocrit 42.3 % (37.0-47.0); Hemoglobin 13.7 g/dL (11.5-15.3); Lymphocytes # 2.7 10^3/uL (0.8-4.8); Lymphocytes % 26.8 %; Mean Corpuscular HGB Conc 32.4 g/dL (30.0-36.0); Mean Corpuscular Hemoglobin 31.9 pg (28.0-34.0); Mean Corpuscular Volume 98.4 fl (81-99); Mean Platelet Volume 12.6 fL (7.4-10.4); Monocytes # 0.7 10^3/uL (0.2-0.9); Monocytes % 6.8 %; Neutrophils # 6.51 10^3/uL (1.8-7.7); Neutrophils % 64.5 %; Nucleated Red Blood Cells % 0 %; Platelet Count 207 10^3/cmm (130-400); Red Cell Distribution Width 12.1 % (12.1-15.1); White Blood Count 10.1 10^3/uL (4.0-10.0)
[2021-08-18 14:05] LABS: Urine Appearance Clear (CLEAR); Urine Color Yellow (Yellow); pH Urine 5 (5-7)
[2021-08-18 14:06] LABS: Add Urine Culture? Yes; Add Urine Microscopic? YES; Bacteria Urine 1+ /hpf; Bilirubin Urine Neg (Negative); Blood Urine Neg (Negative); Glucose Urine UA Norm (Normal); Ketones Urine Negative (Negative); Leukocyte Esterase Urine 1+ (Negative); Nitrate Urine Negative (Negative); Protein Urine Neg (Negative); RBC Urine 0-4 /hpf (0-2); Urobilinogen Urine 1 mg/dL (Negative); WBC Urine 25-40 /hpf (0-5)
[2021-08-18 14:09] LABS: Anion Gap 11.6 (5-19); Blood Urea Nitrogen 9 mg/dL (6-20); Carbon Dioxide 27 mmol/L (22-29); Chloride 107 mmol/L (98-107); Glomerular Filtration Rate 92.7 mL/min (90-130); Glucose 80 mg/dL (65-115); Osmolality Calculated 290 mOsm/kg (285-295); Potassium 4.6 mmol/L (3.5-5.1); Sodium 141 mmol/L (136-145)
[2021-08-20] VITALS (7 sets, daily range): BP systolic 101–118; BP diastolic 69–76; PULSE 65–83; RESP 15–18; TEMP 36.2–36.6; O2SAT 97–100
[2021-08-20] MEDS: scopolamine 1.5 Patch 1 PATCH TRANSDERMA (11:30)
[2021-08-20] MEDS: sodium chloride 0.9% 500 ML IV (11:38)
--- NOTE | 2021-08-20 11:43 | W.PM.OPSUD ---
Surgery/Procedure H&P Update DATE OF PROCEDURE: August 20, 2021 DATE H&P PERFORMED: 08/18/21 H&P UPDATE INFORMATION: I have reviewed H&P completed within last 30 days, I have examined patient prior to procedure and No changes to prior documentation PREOP DIAGNOSIS: Vaginal inclusion cyst PLANNED PROCEDURE: Operation Date: 08/20/21 12:30 Proposed Procedures p Excision of vaginal cyst 70370 N89.8(Not Applicable) - Jaison Lemon MD
[2021-08-20 11:47] LABS: OR HCG Qualitative Urine Negative (Negative)
--- NOTE | 2021-08-20 12:06 | P.ANESASSM_ITS ---
Pre-Anesthetic Assessment Pre-Anesthetic Assessment: Height/Weight: Height 1.68 m Weight 60.781 kg Temp Pulse Resp BP Pulse Ox 97.2 F L 83 16 113/76 100 08/20/21 11:22 08/20/21 11:22 08/20/21 11:22 08/20/21 11:22 08/20/21 11:22 Preop Diagnosis: Vaginal inclusion cyst Proposed Procedure: Operation Date: 08/20/21 12:30 Proposed Procedures p Excision of vaginal cyst 45774 N89.8(Not Applicable) - Jaison Lemon MD Was Beta Jose M taken within 24 hours: N/A Was Clonidine taken within 24 hours: N/A Last intake: Intake Last Liquid Date 08/19/21 Last Liquid Time 21:30 Last Solid Date 08/19/21 Last Solid Time 18:30 Social: Social History: Tobacco Packs per day: 1 ppd Exam: Pre-Anes Outpt Exam: alert, oriented x 3 and clear to auscultation bilaterally Airway: Submandibular: WNL Cervical ROM: WNL MP: 2 Dentition: Chipped Additional comments: missing pre molars History/ROS: No significant complaints Pulmonary: Pulmonary: None reported CV/HEM: CV/HEM: None reported : : None reported Hepatic: Hepatic: None reported GI: GI: None reported Metabolic: Metabolic: None reported Musc/skel: Musc/skel: None reported Neuropsych: Neuropsych: None reported Anesthetic Plan: ASA status: 3 Anesthesia: General Risk of > 500 ml blood loss (7ml/kg in children): No Meds/Allergies Current Medications: Current Medications Generic Name Dose Route Start Last Admin Trade Name Antonioq PRN Reason Stop Dose Admin Sodium Chloride 500 mls @ 500 mls /hr 08/20/21 11:09 08/20/21 11:38 Sodium Chloride 0.9% IV 08/20/21 12:08 500 mls/hr ONCE ONE Administration PFSH Anesthesia PFSH: Medical History (Updated 08/19/21 @ 15:54 by Subha Napoles, SPOOL SANDER) Bipolar 1 disorder Bipolar 2 disorder Deviated septum Generalized anxiety disorder with panic attacks Hx of supraventricular tachycardia Insomnia Menstrual migraine No pertinent past medical history neghx: htn,dm,thyroid,dvt/pe PCP: Dr. Marin Panic disorder with agoraphobia Psychiatric care Surgical History No pertinent past surgical history Family History Family/Other Cancer MGM-- mets all over but uncertain etiology Bipolar 1 disorder Psychiatric illness Mother Heart disease Hypercholesteremia Stroke Other Hyperlipidemia Denies family history of Colon cancer Ovarian cancer Diabetes Breast cancer Hypertension Uterine cancer Thyroid disease Social History Other details last substance use: 2 years ago Alcohol Methamphetamines. 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 Data Anesthesia CBC & Chem 7: 08/18/21 12:03 08/18/21 12:03 Other Labs: Laboratory Results - last 48 hr 08/18/21 08/18/21 08/18/21 12:03 12:03 12:03 WBC 10.1 H RBC 4.30 Hgb 13.7 Hct 42.3 MCV 98.4 MCH 31.9 MCHC 32.4 RDW 12.1 Plt Count 207 MPV 12.6 H Neut % (Auto) 64.5 Lymph % (Auto) 26.8 [place] % (Auto) 6.8 Eos % (Auto) 1.1 Baso % (Auto) 0.6 Neut # (Auto) 6.51 Lymph # (Auto) 2.7 [place] # (Auto) 0.7 Eos # (Auto) 0.1 Baso # (Auto) 0.1 Nucleated RBC % (auto) 0 Nucleated RBCs # 0.0 Sodium 141 Potassium 4.6 Chloride 107 Carbon Dioxide 27 Anion Gap 11.6 BUN 9 Creatinine 0.7 GFR Calculation 92.7 Glucose 80 Calculated Osmolality 290 Calcium 9.0 Urine Color Urine Appearance Urine pH Ur Specific [place] Urine Protein Urine Glucose (UA) Urine Ketones Urine Blood Urine Nitrate Urine Bilirubin Urine Urobilinogen Ur Leukocyte Esterase Urine RBC Urine WBC Ur Squamous Epith Cells Amorphous Sediment Urine Bacteria Urine HCG, Qual Blood Type A Positive Rho(D) Type Positive Antibody Screen Negative 08/18/21 08/18/21 08/20/21 12:07 12:07 11:08 WBC RBC Hgb Hct MCV MCH MCHC RDW Plt Count MPV Neut % (Auto) Lymph % (Auto) [place] % (Auto) Eos % (Auto) Baso % (Auto) Neut # (Auto) Lymph # (Auto) [place] # (Auto) Eos # (Auto) Baso # (Auto) Nucleated RBC % (auto) Nucleated RBCs # Sodium Potassium Chloride Carbon Dioxide Anion Gap BUN Creatinine GFR Calculation Glucose Calculated Osmolality Calcium Urine Color Yellow Urine Appearance Clear Urine pH 5 Ur Specific [place] 1.020 Urine Protein Neg Urine Glucose (UA) Norm Urine Ketones Negative Urine Blood Neg Urine Nitrate Negative Urine Bilirubin Neg Urine Urobilinogen 1 H Ur Leukocyte Esterase 1+ H Urine RBC 0-4 H Urine WBC 25-40 H Ur Squamous Epith Cells 5-10 H Amorphous Sediment Not Reportable Urine Bacteria 1+ H Urine HCG, Qual Negative Negative Blood Type Rho(D) Type Antibody Screen Micro: Microbiology 08/18/21 12:07 Urine Culture - Final Urine,Clean Catch Cardiac Studies: No Data to Display
--- NOTE | 2021-08-20 13:19 | PM.OP ---
Operative Report Date of procedure: August 20, 2021 Pre-op Diagnosis: Vaginal inclusion cyst Post-op diagnosis: same Procedure Done: Vaginal cyst excision Specimens removed/disposition: Vaginal cyst wall Pathology: Vaginal cyst wall Surgeon: Jaison Lemon MD Anesthesia: General Estimated blood loss (mL): 10 IV fluids (mL): 400 Complications: None Condition: stable Disposition: PACU Procedure: After informed consent, the patient was taken to the operating room where general anesthesia was administered. The patient was placed in dorsal lithothomy position. She was examined under anesthesia and found to have a normal uterus with normal adnexa. After a bimanual examination to determine the extent of the [abscess/cyst]. She was then prep and draped in normal sterile fashion. The labia were retracted with the Lone Start retractor and the introitus of the Vagina was exposed. The vaginal mucosa sorrounding the left vaginal cyst was infiltrated with 2% lidocaine with epinephrine. An incision was made over the mucosa of the vaginal cyst at its junction with the introitus down to the wall of the left side cysts. The cyst wall of was undermined from mucosa with Metzenbaum scissors, the content of the cyst was evacuated. The cyst was grasped with Allis clamps and was excised. The are were the cyst was sutured with interrupted 3-0 Vicril to closed the void. The vaginal mucosa was closed in subcuticular fashion with 3-0 Vicryl. The patient tolerated the procedure well and instruments and laps count was correct times two.
--- NOTE | 2021-08-20 13:26 | SUR.PHASEI ---
PT AWAKE ALERT ,TAKING ICE CHIPS PT ON RA SATS 97% VSS PT DENIES PAIN AND NAUSEA, WANTS SPRITE TO SIP ON, RESP EVEN AND UNLABORED.
--- NOTE | 2021-08-20 15:05 | ANE.PACU2 ---
Inpatient post-anesthesia follow up: Airway intact: Yes Vital signs: Temperature 97.9 F Pulse Rate 71 Respiratory Rate 15 Blood Pressure 108/72 Pulse Oximetry 99 Oxygen Delivery Me thod Room Air Oxygen Flow Rate Fraction of Inspir ed Oxygen Hydration adequate: Yes Nausea and vomiting: No Pain level: 2 Mental status: Baseline
== END 2021-08-20 14:20 | disposition home or self-care (01) ==
PROVIDERS: PCP Family Medicine; Visit Provider Obstetrics & Gynecology
PROC: (CPT 57135; principal; 2021-08-20 12:20)
DX: N89.8 Other specified noninflammatory disorders of vagina (principal); F17.210 Nicotine dependence, cigarettes, uncomplicated; Z82.49 Family history of ischemic heart disease and other diseases of the circulatory system; Z83.3 Family history of diabetes mellitus; F31.9 Bipolar disorder, unspecified
CPT/HCPCS: 57135; 36415; 80048; 81001; 81025; 84703; 85025; 86850; 86900; 87086; 88304; 96365; J0690; J2405; J2704; J3010; J7040

== ENCOUNTER → 2021-09-12 08:03 | Outpatient (BNVA) | payer MEDICAID, SELFPAY | PROVIDERS: PCP Family Medicine; Visit Provider Surgery | DX: Z11.52 Encounter for screening for COVID-19 (principal); Z20.822 Contact with and (suspected) exposure to COVID-19 | CPT/HCPCS: 87635 ==

== ENCOUNTER 2021-09-17 08:27 | Day surgery (SDC) | payer MEDICAID, SELFPAY ==
[2021-09-16 09:45] VITALS: BMI 21.7
--- NOTE | 2021-09-17 08:38 | ANES.PREANE2 ---
Pre-Anesthetic Assessment Pre-Anesthetic Assessment: Height/Weight: Height 1.68 m Weight 61.235 kg Preop Diagnosis: abdominal pain Proposed Procedure: Operation Date: 09/17/21 10:00 Proposed Procedures p EGD 49569 R10.13(Not Applicable) - Lobo Matt MD Familial anesthetic complications: None Was Beta Jose M taken within 24 hours: N/A Was Clonidine taken within 24 hours: N/A Last intake: > 8 hrs Social: Social History: Tobacco and No alcohol Exam: Pre-Anes Outpt Exam: alert, oriented x 3, clear to auscultation bilaterally and regular rate & rhythm Airway: MP: 1 Dentition: Other (missing) Additional comments: poor denition Metabolic: Metabolic: Hyperlipidemia Anesthetic Plan: ASA status: 2 Anesthesia: MAC Risk of > 500 ml blood loss (7ml/kg in children): No PFSH Anesthesia PFSH: Medical History (Updated 09/12/21 @ 09:19 by Natali Andrews, RN) Bipolar 1 disorder Bipolar 2 disorder Deviated septum Generalized anxiety disorder with panic attacks Hx of supraventricular tachycardia Insomnia Menstrual migraine No pertinent past medical history neghx: htn,dm,thyroid,dvt/pe PCP: Dr. Marin Panic disorder with agoraphobia Psychiatric care Surgical History (Updated 09/12/21 @ 09:19 by Natali Andrews RN) No pertinent past surgical history Family History Family/Other Cancer MGM-- mets all over but uncertain etiology Bipolar 1 disorder Psychiatric illness Mother Heart disease Hypercholesteremia Stroke Other Hyperlipidemia Denies family history of Colon cancer Ovarian cancer Diabetes Breast cancer Hypertension Uterine cancer Thyroid disease Social History Other details last substance use: 2 years ago Alcohol Methamphetamines. No cravings. Female Reproductive History: Date of last menstrual period: 09/04/21 Data Anesthesia Cardiac Studies: No Data to Display
[2021-09-17 09:20] VITALS: BP 108/67; PULSE 66; RESP 20; TEMP 36.1; O2SAT 100
[2021-09-17 09:32] LABS: OR HCG Qualitative Urine Negative (Negative)
[2021-09-17] MEDS: sodium chloride 0.9% 1,000 ML 30 ML IV (09:38)
--- NOTE | 2021-09-17 10:51 | P.HP_ITS ---
Same Day Surgery H&P Indication for Procedure/HPI DATE OF PROCEDURE: September 17, 2021 CHIEF COMPLAINT/INDICATIONFOR SURGICAL PROCEDURE: My norma ricci PREOP DIAGNOSIS: Epigastric pain PLANNED PROCEDRUE: Operation Date: 09/17/21 10:00 Proposed Procedures p EGD 77996 R10.13(Not Applicable) - Lobo Matt MD 08/04/2021 This is a pleasant 40 years old female patient presents with history of epigastric pain that has been sharp and referred to the back. Nothing seems to make it worse but Prilosec made it better,patient went to the emergency department and a CT scan was obtained that day and showed 1. Normal gallbladder by CT. 2. Slightly more than physiologic free fluid in the pelvis is probably due to a collapsing LEFT corpus luteal cyst. 3. IUD in good position. 4. Normal appendix. Interim history 09/17/2021 Patient comes today for diagnostic EGD ROS All systems have been reviewed negative except as per the above or per problem list Medications/Allergies* Home Medications Medication Instructions Recorded Confirmed Type levonorgestrel 20 mcg/24 hours (6 20 mcg INTRAUTERINE DAILY 07/10/21 09/16/21 History yrs) 52 mg intrauterine device zolpidem [Ambien] 10 mg PO BEDTIME PRN 07/24/21 09/16/21 History Allergies/Adverse Reactions Allergy/AdvReac Type Severity Reaction Status Date / Time No Known Allergies Allergy Verified 09/17/21 10:52 Current Medications: Generic Name Dose Route Start Last Admin Trade Name Freq PRN Reason Stop Dose Admin Sodium Chloride 1,000 mls @ 30 mls/hr 09/17/21 08:45 09/17/21 09:38 Sodium Chloride 0.9% IV 09/18/21 08:44 30 mls/hr .Q24H ABBE Administration Pertinent History/Comorbid Conditions* Medical History (Updated 08/21/21 @ 00:01 by ) Bipolar 1 disorder Bipolar 2 disorder Deviated septum Generalized anxiety disorder with panic attacks Hx of supraventricular tachycardia Insomnia Menstrual migraine No pertinent past medical history neghx: htn,dm,thyroid,dvt/pe PCP: Dr. Marin Panic disorder with agoraphobia Psychiatric care Surgical History (Updated 01/30/20 @ 10:06 by Elma Marin MD) No pertinent past surgical history Family History (Updated 03/14/21 @ 10:54 by Nery Gifford APN, MCKENZIE) Heart disease Mother Hypercholesteremia Mother Hyperlipidemia Psychiatric illness Family/Other Bipolar 1 disorder Family/Other Cancer Family/Other MGM-- mets all over but uncertain etiology Stroke Mother Denies family history of Colon cancer Ovarian cancer Diabetes Breast cancer Hypertension Uterine cancer Thyroid disease Social History Other details last substance use: 2 years ago Alcohol Methamphetamines. No cravings. Pertinent Exam Findings alert, oriented x 3, regular rate & rhythm and procedure specific exam findings (Abdominal examination nontender nondistended soft) Recommendations Surgery/Procedure today (EGD with possible biopsy) Other Plans: Plan of care; After thorough history and physical examination and reviewing the chart, plan to perform a diagnostic esophagogastroduodenoscopy with possible biopsy in the GI lab. I discussed with the patient in detail the risk,benefits,alternatives and indications.The risk of aspiration, bleeding, soft tissue injury, perforation of the stomach/esophagus and other potential concomitant complications were explained to the patient in details,aslo the potential need for Thoracic and or Abdominal surgery to repair any complications.The patient understood this well and did agree to proceed. Rationale was carefully and clearly discussed with the patient.Appropriate informed consent have been reviewed and signed All questions have been answered and all concerns have been addressed to patient's satisfaction. Coding Level of Care Code Acute Women Specialist for Maura Mcmanus
[2021-09-17 11:06] VITALS: BP 91/59; PULSE 75; RESP 18; TEMP 36.2; O2SAT 99
[2021-09-17 11:19] VITALS: BP 100/64; PULSE 61; RESP 18; O2SAT 100
--- NOTE | 2021-09-17 15:38 | ANE.PACU2 ---
Inpatient post-anesthesia follow up: Airway intact: Yes Vital signs: Temperature 97.1 F Pulse Rate 61 Respiratory Rate 18 Blood Pressure 100/64 Pulse Oximetry 100 Oxygen Delivery Me thod Room Air Oxygen Flow Rate 4 Fraction of Inspir ed Oxygen Hydration adequate: Yes Nausea and vomiting: No Pain level: 1 Mental status: Baseline
[2021-09-18 06:45] LABS: H. Pylori / CLO Test Negative
== END 2021-09-17 11:30 | disposition home or self-care (01) ==
PROVIDERS: Anesthesiology; PCP Family Medicine; Visit Provider Surgery
PROC: 0DJ08ZZ Inspection of Upper Intestinal Tract, Via Natural or Artificial Opening Endoscopic (ICD-10-PCS; CPT 43235; principal; 2021-09-17 10:00)
DX: R10.13 Epigastric pain (principal); K29.70 Gastritis, unspecified, without bleeding; Z80.9 Family history of malignant neoplasm, unspecified; E78.5 Hyperlipidemia, unspecified; F17.200 Nicotine dependence, unspecified, uncomplicated
CPT/HCPCS: 43239; 84703; 87077; 96360; 96361; J7030

== ENCOUNTER 2021-10-17 07:04 | Outpatient (CLI) | payer MEDICAID, SELFPAY ==
--- NOTE | 2021-10-17 07:15 | US_ITS ---
WS: [id number] RIGHT UPPER QUADRANT ULTRASOUND HISTORY: R10.13 - Epigastric pain COMPARISON: CT 07/24/2021 Liver: 11.2 cm in length. Normal size liver. No bile duct dilatation or mass. Portal Vein: Normal hepatopetal flow with monophasic waveform. Gallbladder: Normally distended gallbladder with no stones or wall thickening. CBD: 0.2 cm Pancreas: Normal size and echogenicity. Right kidney: 8.2 cm in length. Normal size kidney. Hyperechoic cortical mass in the mid kidney with a maximum diameter of 1.0 cm. 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 No increased vascularity . Aorta and IVC: Unremarkable abdominal aorta and IVC. No ascites. US/US gall bladder [id number] IMPRESSION: 1. Normal gallbladder. 2. Normal liver.
== END 2021-10-17 07:05 | disposition home or self-care (01) ==
LOC: US 07:05
PROVIDERS: PCP Family Medicine; Visit Provider Surgery
DX: R10.13 Epigastric pain (principal)
CPT/HCPCS: 76705

== ENCOUNTER → 2021-11-04 07:36 | Outpatient (BNVA) | payer MEDICAID, SELFPAY | PROVIDERS: PCP Family Medicine; Visit Provider Nurse Practitioner Psychiatric/Mental Health | DX: F41.1 Generalized anxiety disorder (principal); F41.0 Panic disorder [episodic paroxysmal anxiety]; F43.10 Post-traumatic stress disorder, unspecified; F51.01 Primary insomnia | CPT/HCPCS: 99214 ==

== ENCOUNTER 2021-11-06 09:01 | Outpatient (CLI) | payer MEDICAID, SELFPAY ==
--- NOTE | 2021-11-06 09:00 | MM_ITS ---
WS: [email or web address] DIAGNOSTIC LEFT DIGITAL MAMMOGRAM WITH CAD LEFT breast ultrasound, limited HISTORY: Follow-up calcifications and complex cysts upper outer quadrant LEFT breast. COMPARISON: 05/02/2021 and 04/29/2021 Technique: CC, MLO and ML views. Magnification views LEFT breast. Breast composition: The breasts are heterogeneously dense, which may obscure small masses. The cluste r of calcifications in the upper outer quadrant and a posterior depth of the LEFT breast remain uncha nged. There are lucent centered calcifications and also layering calcifications on the lateral view. Most likely these are benign and milk of calcium calcifications. No increase in size or number. There are no specific calcifications which appear pleomorphic. Otherwise the breast parenchyma is also unc hanged. LEFT breast ultrasound: Dense fibroglandular tissue in the LEFT breast in the upper outer quadrant pe rsists. There are mildly prominent ducts. No soft tissue mass or complex cyst identified today. There are no suspicious masses. There are a few dilated ducts. MM/[place] [id number] IMPRESSION: BI-RADS: 3-Probably Benign FOLLOW UP: 6 Month Follow-up Patient should return in 6 months for annual mammogram which should be in April 2022. The calcifications in the upper outer quadrant appear benign and likely r elated to milk of calcium. These can be reevaluated on the annual mammogram. Th ita calcifications should be followed for minimum of 2 years to document contin ued stability.
--- NOTE | 2021-11-06 09:30 | US_ITS ---
WS: [email or web address] DIAGNOSTIC LEFT DIGITAL MAMMOGRAM WITH CAD LEFT breast ultrasound, limited HISTORY: Follow-up calcifications and complex cysts upper outer quadrant LEFT breast. COMPARISON: 05/02/2021 and 04/29/2021 Technique: CC, MLO and ML views. Magnification views LEFT breast. Breast composition: The breasts are heterogeneously dense, which may obscure small masses. The cluste r of calcifications in the upper outer quadrant and a posterior depth of the LEFT breast remain uncha nged. There are lucent centered calcifications and also layering calcifications on the lateral view. Most likely these are benign and milk of calcium calcifications. No increase in size or number. There are no specific calcifications which appear pleomorphic. Otherwise the breast parenchyma is also unc hanged. LEFT breast ultrasound: Dense fibroglandular tissue in the LEFT breast in the upper outer quadrant pe rsists. There are mildly prominent ducts. No soft tissue mass or complex cyst identified today. There are no suspicious masses. There are a few dilated ducts. US/US breast LT limited* [id number] IMPRESSION: BI-RADS: 3-Probably Benign FOLLOW UP: 6 Month Follow-up Patient should return in 6 months for annual mammogram which should be in April 2022. The calcifications in the upper outer quadrant appear benign and likely r elated to milk of calcium. These can be reevaluated on the annual mammogram. Th ita calcifications should be followed for minimum of 2 years to document contin ued stability.
== END 2021-11-06 09:02 | disposition home or self-care (01) ==
LOC: RADSHAW 09:09
PROVIDERS: PCP Family Medicine; Visit Provider Nurse Practitioner Women's Health
DX: R92.1 Mammographic calcification found on diagnostic imaging of breast (principal)
CPT/HCPCS: 76642; 77065

== ENCOUNTER → 2021-12-02 07:58 | Outpatient (BNVA) | payer MEDICAID, SELFPAY | PROVIDERS: PCP Family Medicine; Visit Provider Nurse Practitioner Psychiatric/Mental Health | DX: F51.01 Primary insomnia (principal); F41.1 Generalized anxiety disorder; F41.0 Panic disorder [episodic paroxysmal anxiety]; F43.10 Post-traumatic stress disorder, unspecified | CPT/HCPCS: 99213 ==

== ENCOUNTER 2021-12-10 07:31 | Outpatient (CLI) | payer MEDICAID, SELFPAY ==
--- NOTE | 2021-12-10 10:00 | NM_ITS ---
WS: [email or web address] NUCLEAR MEDICINE HIDA SCAN CLINICAL INFORMATION: R10.13 - Epigastric pain TECHNIQUE: Following intravenous administration of 5.0 mCi of technetium 99m mebrofenin, images of th e abdomen were obtained over the course of 60 minutes. Next, gallbladder ejection fraction was determ ined by obtaining preprandial and one-hour postprandial images of the gallbladder following oral castro stion of Ensure. COMPARISON: Ultrasound October 17, 2021 FINDINGS: Normal hepatic uptake at 5 minutes. Gallbladder is visualized by 10 minutes. No evidence of acute cho lecystitis. Normal common bile duct and small bowel activity. Gallbladder ejection fraction 63% within normal alves its. No evidence of chronic cholecystitis. NM/NM hepatobiliary w phar* [id number] IMPRESSION: 1. No evidence of acute or chronic cholecystitis. 2. Gallbladder ejection fraction 63% within normal limits.
== END 2021-12-10 07:32 | disposition home or self-care (01) ==
LOC: RAD 07:34
PROVIDERS: PCP Family Medicine; Visit Provider Surgery
DX: R10.13 Epigastric pain (principal)
CPT/HCPCS: 78227; A9537

== ENCOUNTER → 2022-01-20 09:26 | Outpatient (BNVA) | payer MEDICAID, SELFPAY | PROVIDERS: PCP Family Medicine; Visit Provider Family Medicine | DX: E78.5 Hyperlipidemia, unspecified (principal); E78.2 Mixed hyperlipidemia; G43.829 Menstrual migraine, not intractable, without status migrainosus; F51.01 Primary insomnia; M54.2 Cervicalgia | CPT/HCPCS: 80053; 80061; 85025 ==

== ENCOUNTER → 2022-01-27 12:11 | Outpatient (BNVA) | payer MEDICAID, SELFPAY | PROVIDERS: PCP Family Medicine; Visit Provider Nurse Practitioner Psychiatric/Mental Health | DX: F51.01 Primary insomnia (principal); F41.1 Generalized anxiety disorder; F41.0 Panic disorder [episodic paroxysmal anxiety]; F43.10 Post-traumatic stress disorder, unspecified | CPT/HCPCS: 99213 ==

== ENCOUNTER → 2022-03-24 12:41 | Outpatient (BNVA) | payer MEDICAID, SELFPAY | PROVIDERS: PCP Family Medicine; Visit Provider Nurse Practitioner Psychiatric/Mental Health | DX: F51.01 Primary insomnia (principal); F41.1 Generalized anxiety disorder; F41.0 Panic disorder [episodic paroxysmal anxiety]; F43.10 Post-traumatic stress disorder, unspecified | CPT/HCPCS: 99213 ==

== ENCOUNTER → 2022-04-28 13:06 | Outpatient (BNVA) | payer MEDICAID, SELFPAY | PROVIDERS: PCP Family Medicine; Visit Provider Nurse Practitioner Psychiatric/Mental Health | DX: F40.01 Agoraphobia with panic disorder (principal); F41.1 Generalized anxiety disorder; F51.01 Primary insomnia; F41.0 Panic disorder [episodic paroxysmal anxiety]; F43.10 Post-traumatic stress disorder, unspecified | CPT/HCPCS: 80061; 99213 ==

== ENCOUNTER 2022-05-22 10:27 | Outpatient (CLI) | payer MEDICAID, SELFPAY ==
--- NOTE | 2022-05-22 10:33 | MM_ITS ---
WS: [email or web address] DIAGNOSTIC BILATERAL DIGITAL BREAST TOMOSYNTHESIS MAMMOGRAPHY WITH CAD HISTORY: 6 MO F/U LT BREAST CALCIFICATIONS COMPARISON: 11/06/2021 and 05/02/2021 and 04/29/2021 TECHNIQUE: Bilateral craniocaudad, mediolateral oblique, and mediolateral views are submitted with to mosynthesis and SM. Magnification views LEFT CC and MLO. Computer aided detection utilized. Breast composition: The breasts are heterogeneously dense, which may obscure small masses. Cluster of calcifications in the upper outer quadrant of the LEFT breast remain stable. Some of these calcifica tions are lucent centered and others layer on the lateral projection suggesting these are benign milk of calcium in etiology. The RIGHT breast is negative. MM/[place] [id number] IMPRESSION: BI-RADS: 3-Probably Benign FOLLOW UP: 6 Month Follow-up Recommend diagnostic evaluation with magnification views LEFT breast calcificat ions. No change since 04/29/2021. Favor these are benign milk of calcium in etio logy.
== END 2022-05-22 10:28 | disposition home or self-care (01) ==
PROVIDERS: PCP Family Medicine; Visit Provider Nurse Practitioner Women's Health
DX: R92.8 Other abnormal and inconclusive findings on diagnostic imaging of breast (principal); R92.1 Mammographic calcification found on diagnostic imaging of breast
CPT/HCPCS: 77062

== ENCOUNTER → 2022-07-09 15:42 | Outpatient (BNVA) | payer MEDICAID, SELFPAY | PROVIDERS: PCP Family Medicine; Visit Provider Nurse Practitioner Women's Health | DX: Z30.431 Encounter for routine checking of intrauterine contraceptive device; N88.0 Leukoplakia of cervix uteri; N93.9 Abnormal uterine and vaginal bleeding, unspecified; N94.5 Secondary dysmenorrhea | CPT/HCPCS: 87624 ==

== ENCOUNTER 2022-07-17 13:18 | Outpatient (CLI) | payer MEDICAID, SELFPAY ==
--- NOTE | 2022-07-17 13:24 | XR_ITS ---
WS: [email or web address] Cervical spine, 3 views, 07/17/2022 Clinical Data: M54.2 - Cervicalgia Comparison: None. Findings: No compression fractures are seen. The disc heights are normal. There is no prevertebral so ft tissue swelling. There is a small spur of the anterior superior aspect of the C4 vertebral body. T he odontoid is unremarkable. The soft tissues of the neck and the lung apices are normal. XR/XR cervical spine 3V* [id number] Impression: Small C4 spur.
== END 2022-07-17 13:19 | disposition home or self-care (01) ==
LOC: RAD 13:19
PROVIDERS: PCP Family Medicine; Visit Provider Family Medicine
DX: M54.2 Cervicalgia (principal); M25.78 Osteophyte, vertebrae
CPT/HCPCS: 72040

== ENCOUNTER → 2022-08-27 16:55 | Outpatient (BNVA) | payer MEDICAID, SELFPAY | PROVIDERS: PCP Family Medicine; Visit Provider Family Medicine | DX: G47.30 Sleep apnea, unspecified (principal); E78.2 Mixed hyperlipidemia | CPT/HCPCS: 80053; 80061; 84443; 85025 ==

== ENCOUNTER → 2022-09-01 16:12 | Outpatient (BNVA) | payer MEDICAID, SELFPAY | PROVIDERS: PCP Family Medicine; Visit Provider Nurse Practitioner Psychiatric/Mental Health | DX: E78.2 Mixed hyperlipidemia (principal) | CPT/HCPCS: 87486; 87581; 87633 ==

== ENCOUNTER 2022-11-17 13:34 | Outpatient (CLI) | payer MEDICAID, SELFPAY ==
--- NOTE | 2022-11-17 13:41 | MM_ITS ---
WS: [email or web address] DIAGNOSTIC LEFT DIGITAL TOMOSYNTHESIS MAMMOGRAPHY WITH CAD. HISTORY: Inconclusive calcifications upper outer quadrant. COMPARISON: 05/22/2022, 11/06/2021, 04/29/2021 Technique: CC, MLO and ML views. Notification views LEFT CC and MLO. Breast composition: The breasts are heterogeneously dense, which may obscure small masses. Cluster o f calcifications in the upper outer quadrant persists. Not significantly changed. Some of these calci fications are lucent centered. Others are more pleomorphic. These may be milk of calcium calcificatio ns. No associated mass. MM/[place] [id number] IMPRESSION: BI-RADS: 4-Suspicious Finding-Biopsy Should Be Considered FOLLOW UP: Biopsy Recommended 1. Stereotactic biopsy recommended of the indeterminate calcifications upper o uter quadrant of the LEFT breast. 2. Recommend stereotactic biopsy. These are most likely benign and may be milk of calcium related. Recommend biopsy to confirm diagnosis.
== END 2022-11-17 13:35 | disposition home or self-care (01) ==
LOC: RAD 13:35
PROVIDERS: PCP Family Medicine; Visit Provider Nurse Practitioner Women's Health
DX: R92.1 Mammographic calcification found on diagnostic imaging of breast (principal)
CPT/HCPCS: 77061; G0279

== ENCOUNTER 2022-11-19 14:23 | Outpatient (CLI) | payer MEDICAID, SELFPAY ==
--- NOTE | 2022-11-19 14:30 | USCV_ITS ---
Dayna Andrews Age: 41 Gender: F : 1980 Exam Date: 11/19/2022 14:43 Ordering Phys: Disha Adan BRAILLE TRANSLATOR Technologist: ZABRINA Exam Location: [facility] [place] Indication: RT CALF PAIN HISTORY: RT CALF PAIN X 2 DAYS PROCEDURES: Venous duplex imaging was performed in only the right lower extremity. The following venous structures were evaluated: common femoral vein, profunda vein, proximal portion of the greater saphenous vein, superficial femoral vein, and the popliteal vein. In addition, the posterior tibial and peroneal trunk were evaluated. On the right side, the common femoral, superficial femoral, profunda femoral, popliteal, posterior tibial, greater saphenous veins and the peroneal trunk were identified and interrogated in the standard fashion. These veins were found to be easily compressible with spontaneous blood flow. No evidence of insufficiency or thrombus noted. Serial compression, augmentation maneuvers, and spectral Doppler flow evaluation were performed. FINDINGS: No evidence of DVT seen in any vessel visualized at this time. CONCLUSIONS No evidence of right lower extremity DVT. Michi Owens MD (Electronically Signed) Final Date: 19 November 2022 17:19 S
== END 2022-11-19 14:24 | disposition home or self-care (01) ==
LOC: RAD 14:24
PROVIDERS: PCP Family Medicine; Visit Provider Nurse Practitioner Family
DX: M79.661 Pain in right lower leg (principal)
CPT/HCPCS: 93971

== ENCOUNTER 2022-12-15 12:34 | Outpatient (CLI) | payer MEDICAID, SELFPAY ==
[2022-12-15 12:45] VITALS: BMI 21.4
--- NOTE | 2022-12-15 12:50 | ECG_ITS ---
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 Interpretive Statements NAME OF STUDY: TREADMILL STRESS ECHOCARDIOGRAM INDICATION: Chest Pain, PROCEDURE: At the baseline, the patient's blood pressure was 110/67 with a heart rate of 66. The baseline electrocardiogram showed normal sinus rhythm with some nonspecific T wave changes. Normal MT and QRS duration.. The patient exercised for 12 minutes and 31 seconds on a standard Devin protocol. Patient attained a maximum heart rate of 165 beats per minute(108% of the maximum predicted heart rate) with a blood pressure at the peak exercise of 143/80 mm Hg. The EKG at the peak exercise revealed some nonspecific ST changes. Patient did not have any chest pain or any significant EKG changes with the exercise During the recovery phase, there were no new changes. Blood pressure at the end of the recovery phase was 111/65 mm Hg with a heart rate of 85 per minute. Echocardiographic pictures were taken at the baseline, immediately following the peak exercise and during the recovery phase. CONCLUSION: 1. No significant EKG changes with the treadmill exercise 2. No exercise-induced chest pain or cardiac arrhythmia 3. Good exercise tolerance, attained a maximum of 17.2 METs 4. Please see separate report for the echocardiographic response to exercise. Electronically Signed On 12-19-2022 13:22:28 LIQUEFIED PETROLEUM GASFITTER by Andrea Martinez M.D. [email or web address]
--- NOTE | 2022-12-15 12:51 | USCV_ITS ---
Dayna Andrews Age: 41 Gender: F : 1980 Exam Date: 12/15/2022 13:03 Ordering Phys: Elma Marin MD Technologist: Leon Dixon Exam [place] [facility] [place] Indication: chest pain Rhythm: Sinus Patient History: HLD/family h/o CAD/former smoker Cardiac Medications: none Medications in past 24 hours: none Contrast: Stress Results Protocol: Edvin Total dose(mL): Exercise Duration (min:sec): 12:31 METS: 17.2 Resting HR: 59 Resting BP: 110 / 67 Peak HR: 165 Peak BP: 143 / 80 Max Predicted HR: 179 92 % Max Predicted HR Target HR: 152 Double Product: 98302 Stress Summary: SOB THAT RESOLVED QUICKLY DURING RECOVERY BP Response: NORMAL Reason for Termination: TARGET HR REACHED Cardiac Symptoms: NONE ECG Analysis Resting ECG: Please see separate report Stress ECG: Please see separate report Arrhythmia: Please see separate report MEASUREMENTS (Male/Female) Normal Values FINDINGS The baseline echocardiogram revealed normal LV size and ejection fraction. Segmental wall motion analysis revealing no gross wall motion normalities. The aortic root appeared to be of normal size. No pericardial effusion.. With exercise, there was good augmentation of all the segments with no exercise- induced wall motion abnormalities. During the recovery phase, the segmental wall motion returned to the baseline CONCLUSIONS 1. Normal echocardiographic response to exercise 2. No evidence of any significant coronary ischemia, based on the above findings Dr Andrea Martinez MD [facility] (Electronically Signed) Final Date: 16 December 2022 10:55 S
[2022-12-15 13:44] VITALS: BP 111/65; PULSE 79
== END 2022-12-15 12:35 | disposition home or self-care (01) ==
LOC: CDL 12:35
PROVIDERS: PCP Family Medicine; Visit Provider Family Medicine
DX: R07.9 Chest pain, unspecified (principal)
CPT/HCPCS: 93017; 93350

== ENCOUNTER 2022-12-15 20:00 | Outpatient (CLI) | payer MEDICAID, SELFPAY | END 2022-12-15 20:01 | disposition home or self-care (01) | LOC: SLEEP 12-16 04:06 | PROVIDERS: PCP Family Medicine; Visit Provider Family Medicine | DX: G47.30 Sleep apnea, unspecified (principal) | CPT/HCPCS: 95810 ==

== ENCOUNTER 2022-12-22 12:16 | Outpatient (CLI) | payer MEDICAID, SELFPAY ==
--- NOTE | 2022-12-22 12:50 | MM_ITS ---
WS: [id number] STEREOTACTIC LEFT BREAST BIOPSY WITH VACUUM ASSISTANCE. History: Heterogeneous LEFT breast calcifications. Biopsy recommended for suspicious calcifications. Comparison: November 17, 2022 Procedure, risks, and complications were discussed the patient who agreed to proceed. Prior imaging w as reviewed. Timeout was performed.Cluster of calcifications within the LEFT breast are localized. St ereotactic imaging was performed. Patient was prepped and draped in usual sterile fashion. After 1% l idocaine, calcifications were targeted stereotactically in the LEFT breast. Small incision was made. Needle advanced into the cluster of calcifications LEFT breast with imaging demonstrating appropriate position relative to the calcifications. Multiple vacuum-assisted core biopsies were obtained. Postp rocedure imaging demonstrates calcifications within the biopsy specimen. The biopsy cavity was lavaged. Titanium clip was placed at the biopsy site. Postprocedure imaging dem onstrates clip in good position. No immediate complications. MM/MM surgical specimen LT IMPRESSION: 1. Uncomplicated vacuum-assisted stereotactic biopsy of calcifications in the LEFT breast. Pathology: Left breast calcifications, needle core biopsies: 1. Fibrocystic change with apocrine metaplasia and microcalcifications 2. Focal benign fibroadenomatoid change 3. Negative for in-situ and invasive malignancy Recommend return to annual screening mammography with spot magnification views of the calcifications at the time of next screening
--- NOTE | 2022-12-22 12:50 | MM_ITS ---
WS: [id number] STEREOTACTIC LEFT BREAST BIOPSY WITH VACUUM ASSISTANCE. History: Heterogeneous LEFT breast calcifications. Biopsy recommended for suspicious calcifications. Comparison: November 17, 2022 Procedure, risks, and complications were discussed the patient who agreed to proceed. Prior imaging w as reviewed. Timeout was performed.Cluster of calcifications within the LEFT breast are localized. St ereotactic imaging was performed. Patient was prepped and draped in usual sterile fashion. After 1% l idocaine, calcifications were targeted stereotactically in the LEFT breast. Small incision was made. Needle advanced into the cluster of calcifications LEFT breast with imaging demonstrating appropriate position relative to the calcifications. Multiple vacuum-assisted core biopsies were obtained. Postp rocedure imaging demonstrates calcifications within the biopsy specimen. The biopsy cavity was lavaged. Titanium clip was placed at the biopsy site. Postprocedure imaging dem onstrates clip in good position. No immediate complications. MM/[place] [id number] IMPRESSION: 1. Uncomplicated vacuum-assisted stereotactic biopsy of calcifications in the LEFT breast. Pathology: Left breast calcifications, needle core biopsies: 1. Fibrocystic change with apocrine metaplasia and microcalcifications 2. Focal benign fibroadenomatoid change 3. Negative for in-situ and invasive malignancy Recommend return to annual screening mammography with spot magnification views of the calcifications at the time of next screening
--- NOTE | 2022-12-22 12:50 | MM_ITS ---
WS: [id number] STEREOTACTIC LEFT BREAST BIOPSY WITH VACUUM ASSISTANCE. History: Heterogeneous LEFT breast calcifications. Biopsy recommended for suspicious calcifications. Comparison: November 17, 2022 Procedure, risks, and complications were discussed the patient who agreed to proceed. Prior imaging w as reviewed. Timeout was performed.Cluster of calcifications within the LEFT breast are localized. St ereotactic imaging was performed. Patient was prepped and draped in usual sterile fashion. After 1% l idocaine, calcifications were targeted stereotactically in the LEFT breast. Small incision was made. Needle advanced into the cluster of calcifications LEFT breast with imaging demonstrating appropriate position relative to the calcifications. Multiple vacuum-assisted core biopsies were obtained. Postp rocedure imaging demonstrates calcifications within the biopsy specimen. The biopsy cavity was lavaged. Titanium clip was placed at the biopsy site. Postprocedure imaging dem onstrates clip in good position. No immediate complications. MM/MM biopsy LT vac assist [id number] IMPRESSION: 1. Uncomplicated vacuum-assisted stereotactic biopsy of calcifications in the LEFT breast. Pathology: Left breast calcifications, needle core biopsies: 1. Fibrocystic change with apocrine metaplasia and microcalcifications 2. Focal benign fibroadenomatoid change 3. Negative for in-situ and invasive malignancy Recommend return to annual screening mammography with spot magnification views of the calcifications at the time of next screening
== END 2022-12-22 12:17 | disposition home or self-care (01) ==
LOC: RAD 12:18
PROVIDERS: PCP Family Medicine; Visit Provider Nurse Practitioner Women's Health
DX: R92.8 Other abnormal and inconclusive findings on diagnostic imaging of breast (principal)
CPT/HCPCS: 19081; 77065; 80053; 80061; 82607; 83735; 84443; 85025; 85379; 88305

== ENCOUNTER 2023-05-24 13:31 | Outpatient (CLI) | payer MEDICAID, SELFPAY ==
--- NOTE | 2023-05-24 13:45 | MM_ITS ---
WS: [id number] BILATERAL 3D TOMOSYNTHESIS DIGITAL DIAGNOSTIC MAMMOGRAPHY WITH CAD CLINICAL INFORMATION: R92.8 - Other abnormal and inconclusive findings on diagn... HISTORY: COMPARISON: December 22, 2022 TECHNIQUE: Bilateral CC, MLO, and ML views. FINDINGS: The breasts are composed of heterogeneous fibroglandular density, which can limit the detection of sm all underlying mass lesions. Biopsy marker upper outer LEFT breast. Stable surrounding calcifications in the area of prior biopsy. No suspicious focal mass, asymmetry, calcifications, or architectural distortion. No evidence of asher gnancy. MM/[place] [id number] IMPRESSION: BI-RADS: 2-Benign FOLLOW UP: 1 Year Follow-up Recommend return to annual screening mammography.
== END 2023-05-24 13:32 | disposition home or self-care (01) ==
PROVIDERS: PCP Family Medicine; Visit Provider Nurse Practitioner Women's Health
DX: R92.8 Other abnormal and inconclusive findings on diagnostic imaging of breast (principal)
CPT/HCPCS: 77062; G0279

== ENCOUNTER → 2023-07-26 17:08 | Outpatient (BNVA) | payer MEDICAID, SELFPAY | PROVIDERS: PCP Family Medicine; Visit Provider Family Medicine | DX: K64.9 Unspecified hemorrhoids (principal); R10.2 Pelvic and perineal pain; E78.5 Hyperlipidemia, unspecified; E78.2 Mixed hyperlipidemia; F51.01 Primary insomnia | CPT/HCPCS: 80053; 80061; 84443; 85025 ==

== ENCOUNTER → 2023-07-29 07:58 | Outpatient (BNVA) | payer MEDICAID, SELFPAY | PROVIDERS: PCP Family Medicine; Referring Provider Family Medicine; Visit Provider Surgery | DX: K92.1 Melena (principal) | CPT/HCPCS: 99203; 99214 ==

== ENCOUNTER 2023-08-03 11:11 | Outpatient (CLI) | payer MEDICAID, SELFPAY ==
--- NOTE | 2023-08-03 11:15 | US_ITS ---
WS: [id number] ULTRASOUND SOFT TISSUES LEFT inguinal region HISTORY: R10.2 - Pelvic and perineal pain COMPARISON: None available. TECHNIQUE: 2-D and color Doppler imaging is submitted. Ultrasound is directed to the LEFT inguinal region in the area of pain. There is no soft tissue mass or hematoma. No increased vascularity. There are several benign-appearing lymph nodes. IMPRESSION: Negative ultrasound LEFT groin. No abnormality detected.
== END 2023-08-03 11:12 | disposition home or self-care (01) ==
LOC: RAD 11:13
PROVIDERS: PCP Family Medicine; Visit Provider Family Medicine
DX: R10.2 Pelvic and perineal pain (principal)
CPT/HCPCS: 76882

== ENCOUNTER 2023-09-15 06:28 | Day surgery (SDC) | payer MEDICAID, SELFPAY ==
[2023-09-15 06:46] VITALS: BP 125/75; PULSE 74; RESP 16; TEMP 36.2; O2SAT 99; BMI 22.8
[2023-09-15] MEDS: sodium chloride 0.9% 1,000 ML 30 ML IV (06:52)
--- NOTE | 2023-09-15 07:19 | ANES.PREANE2 ---
Pre-Anesthetic Assessment Height/Weight: Height 1.68 m Weight 64.41 kg Temp Pulse Resp BP Pulse Ox O2 Del Method 97.1 F L 74 16 125/75 99 Room Air 09/15/23 06:46 09/15/23 06:46 09/15/23 06:46 09/15/23 06:46 09/15/23 06:46 09/15/23 06:46 Preop Diagnosis: Hamatachezia Operation Date: 09/15/23 07:30 Proposed Procedures p 08395 diagnostic colon K92.1(Not Applicable) - Simone Flores, DO Was Beta Jose M taken within 24 hours: N/A Was Clonidine taken within 24 hours: N/A Last intake: Intake Last Liquid Date 09/14/23 Last Liquid Time 22:00 Last Solid Date 09/13/23 Last Solid Time 20:00 Airway Submandibular: within normal limits Cervical ROM: within normal limits Mallampati: Class II Comments: Comments: Several missing teeth,nothing loose History/ROS No significant history except as noted and No significant complaints Pulmonary None reported CV/HEM None reported None reported Hepatic None reported GI Gastroesophageal Reflux Disease Metabolic None reported Musc/skel None reported Neuropsych Anxiety and Bipolar Anesthetic Plan ASA status: 2 Anesthesia: MAC Risk of > 500 ml blood loss (7ml/kg in children): No Medications/Allergies Home Medications Medication Instructions Recorded Confirmed Last Taken Type levonorgestrel 21 mcg/24 hours (8 20 mcg intrauterine DAILY 07/10/21 09/15/23 09/14/23 History yrs) 52 mg intrauterine device (Mirena) rizatriptan 10 mg disintegrating See Rx Instructions PO .COMPLEX 01/20/22 09/15/23 2 Weeks Ago Rx tablet (Maxalt-[employer] ACC[employer] REPRESENTATIVE) #14 tabs ~09/01/23 clonazepam 1 mg tablet 1 mg PO DAILY PRN anxiety #30 tabs 07/26/23 09/15/23 09/11/23 Rx zolpidem 10 mg tablet 10 mg PO DAILY #30 tabs 07/26/23 09/15/23 09/14/23 Rx gabapentin 100 mg capsule 200 mg PO TID #180 caps 08/12/23 09/15/23 09/14/23 Rx venlafaxine 150 mg tablet,extended 150 mg PO QAM #30 tabs 08/12/23 09/15/23 09/14/23 Rx release 24 hr atorvastatin 40 mg tablet 40 mg PO DAILY 09/13/23 09/15/23 09/14/23 History Allergies Allergy/AdvReac Type Severity Reaction Status Date / Time No Known Allergies Allergy Verified 09/13/23 09:13 Current Medications Generic Name Dose Route Start Last Admin Trade Name Too PRN Reason Stop Dose Admin Sodium Chloride 1,000 mls @ 30 mls/hr 09/14/23 10:30 09/15/23 06:52 Sodium Chloride 0.9% IV 09/15/23 10:29 30 mls/hr .Q24H ABBE Administration PFSH Anesthesia Medical History Bipolar 1 disorder Bipolar 2 disorder Depression, recurrent Deviated septum Generalized anxiety disorder with panic attacks Hx of supraventricular tachycardia Insomnia Menstrual migraine No pertinent past medical history neghx: htn,dm,thyroid,dvt/pe PCP: Dr. Marin Panic disorder with agoraphobia Psychiatric care Surgical History H/O vaginal surgery 08/20/2021- vaginal cyst excision, performed by Dr. Lemon at [facility]. Benign pathology. History of esophagogastroduodenoscopy (EGD) (~2020) Giurgus--- inflammation; started on omeprazole and then resolved. 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 Hard liquor- whiskey or vodka Substance/Drug Use: never Household members: significant other Marital status: Life Partner Current occupational status: unemployed Current gender identity: Female Special tyra needs: No Data Anesthesia Cardiac Studies: Stress Echocardiogram 12/15/22
--- NOTE | 2023-09-15 07:30 | PM.HP ---
Providers/Chief Complaint Primary Care Provider: Elma Marin MD Chief Complaint: 91012 K92.1 History of Present Illness Dayna Andrews is a 42 year old female Review of Systems General: Reports: 10 or more systems reviewed and unremarkable except in HPI and below Medications/Allergies Home Medications Medication Instructions Recorded Confirmed Last Taken Type levonorgestrel 21 mcg/24 hours (8 20 mcg intrauterine DAILY 07/10/21 09/15/23 09/14/23 History yrs) 52 mg intrauterine device (Mirena) rizatriptan 10 mg disintegrating See Rx Instructions PO .COMPLEX 01/20/22 09/15/23 2 Weeks Ago Rx tablet (Maxalt-DELIVERY AGENT) #14 tabs ~09/01/23 clonazepam 1 mg tablet 1 mg PO DAILY PRN anxiety #30 tabs 07/26/23 09/15/23 09/11/23 Rx zolpidem 10 mg tablet 10 mg PO DAILY #30 tabs 07/26/23 09/15/23 09/14/23 Rx gabapentin 100 mg capsule 200 mg PO TID #180 caps 08/12/23 09/15/23 09/14/23 Rx venlafaxine 150 mg tablet,extended 150 mg PO QAM #30 tabs 08/12/23 09/15/23 09/14/23 Rx release 24 hr atorvastatin 40 mg tablet 40 mg PO DAILY 09/13/23 09/15/23 09/14/23 History Allergies Allergy/AdvReac Type Severity Reaction Status Date / Time No Known Allergies Allergy Verified 09/13/23 09:13 PFSH Acute PFSH: Medical History Bipolar 1 disorder Bipolar 2 disorder Depression, recurrent Deviated septum Generalized anxiety disorder with panic attacks Hx of supraventricular tachycardia Insomnia Menstrual migraine No pertinent past medical history neghx: htn,dm,thyroid,dvt/pe PCP: Dr. Marin Panic disorder with agoraphobia Psychiatric care Surgical History H/O vaginal surgery 08/20/2021- vaginal cyst excision, performed by Dr. Lemon at [facility]. Benign pathology. History of esophagogastroduodenoscopy (EGD) (~2020) Giurgus--- inflammation; started on omeprazole and then resolved. 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 Hard liquor- whiskey or vodka Substance/Drug Use: never Household members: significant other Marital status: Life Partner Current occupational status: unemployed Current gender identity: Female Special tyra needs: No Vitals/I&O/Wt Last Vital Signs Temp 97.1 F L 09/15/23 06:46 Pulse 74 09/15/23 06:46 Resp 16 09/15/23 06:46 BP 125/75 09/15/23 06:46 Pulse Ox 99 09/15/23 06:46 O2 Del Method Room Air 09/15/23 06:46 Weight last 48 hrs Weight 142 lb A&P Assessment and plan (1) Hematochezia: Plan Colonoscopy Attestations Medical Necessity Statement*: Home Coding Level of Care Code Acute Code for Chg Fwd Diagnoses Hematochezia K92.1
[2023-09-15 07:56] VITALS: BP 99/75; PULSE 74; RESP 16; TEMP 36.2; O2SAT 98
[2023-09-15 08:06] VITALS: BP 104/74; PULSE 76; RESP 16; O2SAT 98
[2023-09-15 09:32] LABS: OR HCG Qualitative Urine Negative (Negative)
--- NOTE | 2023-09-15 16:40 | ANE.PACU2 ---
Inpatient post-anesthesia follow up: Airway intact: Yes Vital signs: Temperature 97.1 F Pulse Rate 76 Respiratory Rate 16 Blood Pressure 104/74 Pulse Oximetry 98 Oxygen Delivery Me thod Room Air Oxygen Flow Rate 3 Fraction of Inspir ed Oxygen Hydration adequate: Yes Nausea and vomiting: No Pain level: 2 Mental status: Baseline
== END 2023-09-15 08:20 | disposition home or self-care (01) ==
PROVIDERS: Anesthesiology; PCP Family Medicine; Visit Provider Surgery
PROC: 0DJD8ZZ Inspection of Lower Intestinal Tract, Via Natural or Artificial Opening Endoscopic (ICD-10-PCS; CPT 45378; principal; 2023-09-15 07:30)
DX: K92.1 Melena (principal); K64.8 Other hemorrhoids; Z87.891 Personal history of nicotine dependence
CPT/HCPCS: 45378; 81025; 84703; J2704; J7030

== ENCOUNTER → 2023-09-23 10:15 | Outpatient (BNVA) | payer MEDICAID, SELFPAY | PROVIDERS: PCP Family Medicine; Visit Provider Surgery | DX: K64.9 Unspecified hemorrhoids (principal) | CPT/HCPCS: 99214 ==

== ENCOUNTER 2023-10-04 07:37 | Day surgery (SDC) | payer MEDICAID, SELFPAY ==
[2023-10-04] VITALS (12 sets, daily range): BP systolic 90–106; BP diastolic 63–85; PULSE 64–87; RESP 15–19; TEMP 36.2–36.5; O2SAT 97–100; BMI 22.8
--- NOTE | 2023-10-04 07:51 | W.PM.OPSUD ---
Surgery/Procedure H&P Update DATE OF PROCEDURE: October 04, 2023 DATE H&P PERFORMED: 09/23/23 H&P UPDATE INFORMATION: I have reviewed H&P completed within last 30 days, I have examined patient prior to procedure and No changes to prior documentation PLANNED PROCEDURE: Operation Date: 10/04/23 09:10 [place] Procedures p [address]385 hemorrhoidectomy K64.9(Not Applicable) - Simone Flores,
[2023-10-04 08:06] LABS: OR HCG Qualitative Urine Negative (Negative)
--- NOTE | 2023-10-04 08:33 | ANES.PREANE2 ---
Pre-Anesthetic Assessment Height/Weight: Height 1.68 m Weight 64.41 kg Temp Pulse Resp BP Pulse Ox O2 Del Method 97.3 F L 79 18 106/85 100 Room Air 10/04/23 08:07 10/04/23 08:07 10/04/23 08:07 10/04/23 08:07 10/04/23 08:07 10/04/23 08:09 Operation Date: 10/04/23 09:10 Pro[place] Procedures p [address]17 hemorrhoidectomy K64.9(Not Applicable) - Simone Flores DO Familial anesthetic complications: None Was Beta Jose M taken within 24 hours: N/A Was Clonidine taken within 24 hours: N/A Last intake: Intake Last Liquid Date 10/03/23 Last Liquid Time 23:00 Last Solid Date 10/03/23 Last Solid Time 22:00 Social Tobacco and No alcohol Exam alert, oriented x 3, clear to auscultation bilaterally and regular rate & rhythm Airway Mallampati: Class II Dentition: chipped Comments: Comments: poor dentition GI Gastroesophageal Reflux Disease Metabolic Hyperlipidemia Neuropsych Anxiety Anesthetic Plan ASA status: 2 Anesthesia: General Risk of > 500 ml blood loss (7ml/kg in children): No Medications/Allergies Home Medications Medication Instructions Recorded Confirmed Last Taken Type levonorgestrel 21 mcg/24 hours (8 20 mcg intrauterine DAILY 07/10/21 09/29/23 09/29/23 History yrs) 52 mg intrauterine device (Mirena) clonazepam 1 mg tablet 1 mg PO DAILY PRN anxiety #30 tabs 07/26/23 09/29/23 10/03/23 Rx zolpidem 10 mg tablet 10 mg PO DAILY #30 tabs 07/26/23 09/29/23 09/29/23 Rx gabapentin 100 mg capsule 200 mg PO TID #180 caps 08/12/23 09/29/23 10/03/23 Rx venlafaxine 150 mg tablet,extended 150 mg PO QAM #30 tabs 08/12/23 09/29/23 10/03/23 Rx release 24 hr atorvastatin 40 mg tablet 40 mg PO DAILY 09/13/23 09/29/23 10/03/23 History rizatriptan 10 mg disintegrating 1 - 2 mg PO DIRECTED PRN 09/29/23 09/29/23 09/15/23 History tablet (Maxalt-[employer] ASSOCIATE) headaches Allergies Allergy/AdvReac Type Severity Reaction Status Date / Time No Known Allergies Allergy Verified 09/23/23 10:22 [facility] Anesthesia Medical History Bipolar 1 disorder Bipolar 2 disorder Depression, recurrent Deviated septum Generalized anxiety disorder with panic attacks Hx of supraventricular tachycardia Insomnia Menstrual migraine No pertinent past medical history neghx: htn,dm,thyroid,dvt/pe PCP: Dr. Marin Panic disorder with agoraphobia Psychiatric care Surgical History H/O vaginal surgery 08/20/2021- vaginal cyst excision, performed by Dr. Lemon at [facility]. Benign pathology. History of esophagogastroduodenoscopy (EGD) (~2020) Giurgus--- inflammation; started on omeprazole and then resolved. 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 Hard liquor- whiskey or vodka Substance/Drug Use: never Household members: significant other Marital status: Life Partner Current occupational status: unemployed Current gender identity: Female Special tyra needs: No Data Anesthesia Cardiac Studies: Stress Echocardiogram 12/15/22
[2023-10-04] MEDS: sodium chloride 0.9% 1,000 ML 30 ML IV (08:39)
[2023-10-04] MEDS: ceFAZolin 2,000 MG in sodium chloride 0.9% (plus) 50 ML 100 MG IV (08:53)
[2023-10-04] MEDS: BUPivacaine liposome 13.3 mg/mL SDV 10 mL 133 MG INFILTRATI (09:15)
[2023-10-04] MEDS: BUPivacaine 0.5% INJ 10 mL INJECTION (09:15)
[2023-10-04] MEDS: thrombin 5,000 unit SDV 5000 UNIT XX (09:20)
--- NOTE | 2023-10-04 09:28 | PM.OP ---
Operative Report Date of procedure: October 04, 2023 Pre-op diagnosis: Internal hemorrhoids Post-op diagnosis: same Procedure done: Hemorrhoidectomy Implants: Exparel, thrombin Gelfoam Specimens removed/disposition: All 3 hemorrhoidal pillars Surgeon: Simone Flores DO Anesthesia: General and Local Estimated blood loss (mL): 5 Complications: None apparent Brief History: This is a very pleasant 42-year-old female who was found to have internal hemorrhoids. They did not resolve with medical treatment. She desired hemorrhoidectomy. The risk and benefits were explained and documented. Procedure: Patient was well in the operative room and general endotracheal ovation was achieved by the department anesthesia. He was then placed into the prone jackknife position. The anus was inspected prepped and draped in usual sterile fashion. A timeout was performed. All present were in agreement. Retractor was used to examine the anus and she had sizable hemorrhoids at all 3 pillars. The largest pillar was the right posterior. All 3 pillars were taken in the same manner. The exterior most edge of the hemorrhoid was slightly ligated with electrocautery. The harmonic scalpel was then used to excise all 3 hemorrhoidal pillars. There was minimal bleeding. Thrombin-soaked Gelfoam was then placed into the anus. Sterile bandage was applied. Patient tolerated procedure well.
[2023-10-04] MEDS: ondansetron 2 mg/ML SDV 2 mL 4 MG IVP (11:16)
[2023-10-04] MEDS: HYDROcodone-acetaminophen 10-325 mg Tablet 1 TAB PO (11:16)
--- NOTE | 2023-10-04 11:30 | ANE.PACU2 ---
Inpatient post-anesthesia follow up: Airway intact: Yes Vital signs: Temperature 97.7 F Pulse Rate 64 Respiratory Rate 16 Blood Pressure 106/78 Pulse Oximetry 100 Oxygen Delivery Me thod Room Air Oxygen Flow Rate 6 Fraction of Inspir ed Oxygen Hydration adequate: Yes Nausea and vomiting: No Pain level: 1 Mental status: Baseline
--- NOTE | 2023-10-05 10:18 | SUR.PHASEII ---
Patient called at 1715 on 10-04-23 regarding her prescription of [place] states that [facility] in [place] does not have this dose of RX available and is currently on backorder.[id number] Flores regarding the above request,order given to call Tramadol 50mg. po every 6 hrs prn pain, dispense 56# tablets,called this rx to [facility] and then called patient to notify of this and verbalized understanding.
== END 2023-10-04 11:30 | disposition home or self-care (01) ==
PROVIDERS: Anesthesiology; PCP Family Medicine; Visit Provider Surgery
PROC: (CPT 46260; principal; 2023-10-04 09:10)
DX: K64.8 Other hemorrhoids (principal); K21.9 Gastro-esophageal reflux disease without esophagitis; E78.5 Hyperlipidemia, unspecified; Z87.891 Personal history of nicotine dependence
CPT/HCPCS: 46260; 84703; 88304; C9290; J0690; J1100; J1170; J2250; J2405; J2704; J2710; J3010; J3490; J7030

== ENCOUNTER → 2023-11-09 09:58 | Outpatient (BNVA) | payer MEDICAID, SELFPAY | PROVIDERS: PCP Family Medicine; Visit Provider Surgery | DX: Z98.890 Other specified postprocedural states (principal) | CPT/HCPCS: 99024 ==

== ENCOUNTER → 2023-11-12 10:25 | Outpatient (BNVA) | payer MEDICAID, SELFPAY | PROVIDERS: PCP Family Medicine; Visit Provider Family Medicine | DX: R07.9 Chest pain, unspecified (principal) | CPT/HCPCS: 71046 ==

== ENCOUNTER 2024-04-28 13:35 | Outpatient (CLI) | payer MEDICAID, SELFPAY ==
--- NOTE | 2024-04-28 13:45 | CT_ITS ---
WS: [email or web address] CT ABDOMEN PELVIS TECHNIQUE: Contrast-enhanced CT of the abdomen and pelvis with coronal and sagittal reformatted image s. CLINICAL INFORMATION: LLQ PAIN R10.32 COMPARISON: CT abdomen pelvis 07/24/2021 DLP: 301.[address] scans at [facility] use at least one of these dose optimization techniques: automated e xposure control; mA and/or kV adjustment per patient size (includes targeted exams where dose is matc hed to clinical indication); or iterative reconstruction. FINDINGS: Lung bases are well aerated. Diffuse fatty infiltration of the liver. Normal portal vein and splenic vein. Normal spleen. Contrast in the stomach. Normal GE junction. Normal celiac and SMA. Normal calib er abdominal aorta. No hydronephrosis in either kidney. Small bilateral renal cysts. Slightly complex RIGHT renal cyst is unchanged compared to previous measuring 9 mm. Recommend follow-up with ultrasou nd. Adrenal glands are normal. Small fat-containing umbilical hernia. Gallbladder appears normal. IUD in place. Enlarged enhancing uterus with fluid in the cervix likely physiologic. Endometrial thickening likely physiologic. Multi follicular LEFT ovary. Previously described corpus luteum cyst in the LEFT lower quadrant on prior CT has resolved. Appendix is normal in appearance. No evidence of acute appendicitis. Normal sigmoid colon. No evidenc e of small or large bowel obstruction. CT/CT abdomen pelvis w con* [id number] IMPRESSION: 1. Normal appendix in RIGHT lower quadrant. No evidence of acute appendicitis. 2. Intrauterine IUD unchanged from previous. Multi follicular LEFT greater dangelo n RIGHT ovaries. 3. Previously described corpus luteum cyst in the LEFT lower quadrant has reso lved. 4. Mild diffuse fatty infiltration of liver. 5. Small bilateral renal cysts. 6. Complex RIGHT renal cystic lesion is technically indeterminant and recommen d follow-up with ultrasound. This measures 9 mm and unchanged from previous. 7. No other acute findings or change from previous.
[2024-04-28] MEDS: iohexol 350 mg/mL 500 mL Btl (per mL) PO (15:04)
[2024-04-28] MEDS: iohexol 350 mg/mL 500 mL Btl (per mL) IV (15:12)
== END 2024-04-28 13:36 | disposition home or self-care (01) ==
LOC: RAD 13:35
PROVIDERS: PCP Family Medicine; Visit Provider Internal Medicine
DX: R10.32 Left lower quadrant pain (principal); Q61.02 Congenital multiple renal cysts; Z97.5 Presence of (intrauterine) contraceptive device
CPT/HCPCS: 74177; Q9967

== ENCOUNTER → 2024-05-24 09:53 | Outpatient (BNVA) | payer MEDICAID, SELFPAY | PROVIDERS: PCP Family Medicine; Visit Provider Family Medicine | DX: K76.0 Fatty (change of) liver, not elsewhere classified (principal) | CPT/HCPCS: 80076; 86705; 86706; 86709; 86803; 87340 ==

== ENCOUNTER → 2024-05-29 08:09 | Outpatient (BNVA) | payer MEDICAID, SELFPAY | PROVIDERS: PCP Family Medicine; Referring Provider Internal Medicine; Visit Provider Surgery | DX: K42.9 Umbilical hernia without obstruction or gangrene (principal); R10.32 Left lower quadrant pain; K59.00 Constipation, unspecified; K21.9 Gastro-esophageal reflux disease without esophagitis | CPT/HCPCS: 99204; 99214 ==

== ENCOUNTER 2024-05-30 11:00 | Outpatient (CLI) | payer MEDICAID, SELFPAY ==
--- NOTE | 2024-05-30 11:04 | MM_ITS ---
WS: [email or web address] BILATERAL 3D TOMOSYNTHESIS DIGITAL SCREENING MAMMOGRAM WITH CAD CLINICAL INFORMATION: SCREENING HISTORY: Screening mammogram. No current complaints. COMPARISON: 2022 TECHNIQUE: Bilateral CC and MLO. FINDINGS: The breast are composed of extremely dense tissue, which can limit the detection of small underlying mass lesions. No suspicious focal mass, asymmetry, calcifications, or architectural distortion. No ev idence of malignancy. Biopsy marker upper outer LEFT breast from prior stereotactic biopsy. Stable sharma rrounding calcifications in the area of prior biopsy. MM/[place] [id number] IMPRESSION: BI-RADS: 2-Benign FOLLOW UP: 1 Year Follow-up Recommend return to annual screening mammography.
== END 2024-05-30 11:03 | disposition home or self-care (01) ==
PROVIDERS: PCP Family Medicine; Visit Provider Nurse Practitioner Women's Health
DX: Z12.31 Encounter for screening mammogram for malignant neoplasm of breast (principal); R92.343 Mammographic extreme density, bilateral breasts; R92.1 Mammographic calcification found on diagnostic imaging of breast
CPT/HCPCS: 77063; 77067

== ENCOUNTER → 2024-06-07 15:46 | Outpatient (BNVA) | payer OTHER, SELFPAY | PROVIDERS: PCP Family Medicine; Visit Provider Nurse Practitioner Women's Health | DX: Z12.4 Encounter for screening for malignant neoplasm of cervix (principal) | CPT/HCPCS: 87624 ==

== ENCOUNTER 2024-06-09 06:24 | Outpatient (CLI) | payer MEDICAID, SELFPAY ==
--- NOTE | 2024-06-09 06:30 | US_ITS ---
WS: [id number] ULTRASOUND ABDOMEN LIMITED CLINICAL INFORMATION: K76.0 - Fatty (change of) liver, not elsewhere classified COMPARISON: Ultrasound 2020 FINDINGS: Liver Size: Normal. Craniocaudal length: 12.0 cm. Echogenicity: Coarse compatible with fatty infiltration. Surface nodularity: None. Mass (size and location): None. Bile ducts Intrahepatic ducts: Normal. Common bile duct diameter: 0.3 cm. Gallbladder Normal. Gallstones: None. Gallbladder sludge: None. Gallbladder wall thickening: None. Pericholecystic fluid: None. Sonographic Velarde sign: Absent. Pancreas Normal as visualized. Right kidney: Echogenic lesion in the RIGHT kidney measuring 1.2 x 1.3 x 0.8 cm compatible with angio myolipoma Hydronephrosis: None. Size: 9.6 cm x 4.9 cm x 3.9 cm. Abdominal aorta and IVC Visualized portions are normal. Ascites: None. US/US liver [id number] IMPRESSION: 1. Diffuse fatty infiltration of the liver. 2. Normal gallbladder. 3. No hydronephrosis in the RIGHT kidney. 4. 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 T his is unchanged compared to previous.
== END 2024-06-09 06:25 | disposition home or self-care (01) ==
LOC: RAD 06:24
PROVIDERS: PCP Family Medicine; Visit Provider Family Medicine
DX: K76.0 Fatty (change of) liver, not elsewhere classified (principal); N28.89 Other specified disorders of kidney and ureter
CPT/HCPCS: 76705; 80076; 86705; 86706; 86709; 86803; 87340

== ENCOUNTER → 2024-06-14 10:15 | Outpatient (BNVA) | payer MEDICAID, SELFPAY | PROVIDERS: PCP Family Medicine; Visit Provider Nurse Practitioner Women's Health | DX: A64 Unspecified sexually transmitted disease (principal) | CPT/HCPCS: 87491; 87591 ==

== ENCOUNTER → 2024-06-20 12:29 | Outpatient (BNVA) | payer MEDICAID, SELFPAY | PROVIDERS: PCP Family Medicine; Visit Provider Nurse Practitioner Women's Health | DX: Z30.431 Encounter for routine checking of intrauterine contraceptive device (principal) | CPT/HCPCS: 76830 ==

== ENCOUNTER → 2024-06-26 10:58 | Outpatient (BNVA) | payer MEDICAID, SELFPAY | PROVIDERS: PCP Family Medicine; Visit Provider Surgery | DX: K21.9 Gastro-esophageal reflux disease without esophagitis (principal); K59.00 Constipation, unspecified | CPT/HCPCS: 99214 ==

== ENCOUNTER → 2024-07-27 13:05 | Outpatient (BNVA) | payer MEDICAID, SELFPAY | PROVIDERS: PCP Family Medicine; Visit Provider Obstetrics & Gynecology | DX: R87.619 Unspecified abnormal cytological findings in specimens from cervix uteri (principal) | CPT/HCPCS: 81025; 88305 ==

== ENCOUNTER → 2024-08-01 14:04 | Outpatient (BNVA) | payer OTHER, SELFPAY | PROVIDERS: PCP Family Medicine; Visit Provider Nurse Practitioner Psychiatric/Mental Health | DX: Z79.899 Other long term (current) drug therapy (principal) | CPT/HCPCS: 80053; 80061; 83036 ==

== ENCOUNTER → 2024-08-21 13:57 | Outpatient (BNVA) | payer SELFPAY | PROVIDERS: PCP Family Medicine; Visit Provider Obstetrics & Gynecology | DX: A59.9 Trichomoniasis, unspecified (principal) | CPT/HCPCS: 87491; 87591 ==